=== PATIENT | male | born 1935 | race Caucasian/White ===

== ENCOUNTER 2019-01-08 14:20 | Outpatient (CLI) | payer MEDICARE | END 2019-01-08 14:21 | disposition critical access hospital (66) | LOC: EMS 14:20 | PROVIDERS: ATTEND Surgery | DX: R41.0 Disorientation, unspecified (principal); R42 Dizziness and giddiness; R47.81 Slurred speech | CPT/HCPCS: A0425; A0429 ==

== ENCOUNTER 2019-01-08 14:51 | Observation (INO) | payer MEDICARE ==
[2019-01-08] MEDS ORDERED: SODIUM CHLORIDE 0.9% 1,000 ML IV ONE (15:21)
[2019-01-08 15:31] LABS: BASOPHILS # (AUTO) 0.1 10^3/uL (0.0-0.1); BASOPHILS % (AUTO) 0.6 %; EOSINOPHILS # (AUTO) 0.3 10^3/uL (0.0-0.7); EOSINOPHILS % (AUTO) 3.1 %; LYMPHOCYTES # (AUTO) 1.3 10^3/uL (1.5-3.5); LYMPHOCYTES % (AUTO) 15.1 %; MEAN CORPUSCULAR HEMOGLOBIN 32.4 pg (27.0-31.0); MEAN CORPUSCULAR HGB CONC 31.7 g/dL (32.0-36.0); MEAN CORPUSCULAR VOLUME 102.1 fL (80.0-94.0); MEAN PLATELET VOLUME 9.8 fL (7.4-11.4); MONOCYTES # (AUTO) 0.6 10^3/uL (0.0-1.0); MONOCYTES % (AUTO) 7.5 %; NEUTROPHILS # (AUTO) 6.1 10^3/uL (1.5-6.6); NEUTROPHILS % (AUTO) 73.2 %; PLT - PLATELET COUNT 279 10^3/uL (130-450); RED BLOOD COUNT 4.32 10^6/uL (4.70-6.10); RED CELL DISTRIBUTION WIDTH 12.2 % (12.0-15.0); WHITE BLOOD COUNT 8.3 x10^3/uL (4.8-10.8)
[2019-01-08] MEDS ORDERED: IOVERSOL 320 100 ML VIAL IVP ONE ×2 (15:36→16:18)
[2019-01-08 15:59] LABS: ALBUMIN 4.5 g/dL (3.2-5.5); ALBUMIN/GLOBULIN RATIO 1.5 (1.0-2.2); CALCIUM 9.6 mg/dL (8.5-10.3); CREATININE 1.6 mg/dL (0.6-1.2); MAGNESIUM 2.6 mg/dL (1.7-2.8); TOTAL PROTEIN 7.6 g/dL (6.7-8.2)
[2019-01-08 16:00] LABS: BILIRUBIN,URINE NEGATIVE (NEGATIVE); CLARITY,URINE CLEAR (CLEAR); GLUCOSE, URINE (UA) NEGATIVE (NEGATIVE); KETONES,URINE (UA) NEGATIVE (NEGATIVE); LEUKOCYTE ESTERASE, URINE NEGATIVE (NEGATIVE); NITRITE,URINE NEGATIVE (NEGATIVE); OCCULT BLOOD,URINE NEGATIVE (NEGATIVE); PH,URINE 7.5 PH (5.0-7.5); PROTEIN,URINE NEGATIVE (NEGATIVE); UROBILINOGEN,URINE 0.2 (NORMAL) E.U./dL (NORMAL)
--- NOTE | 2019-01-08 16:57 | ED Physician Documentation ---
PD HPI FOCAL NEURO - Stated complaint Stated Complaint: SLURRED SPEECH - Chief complaint Chief Complaint: Neuro - History obtained from History obtained from: Patient, Family, EMS - History of Present Illness Timing - onset: How many days ago (3) Timing - duration: Days (3) Timing - details: Abrupt onset, Still present Severity of deficit: Moderate (general weakness and difficulty ambulating with walker. Slurring of speech but content is okay. Dizziness with movement.) Weakness: Other (generalized) Numbness: No: Face, Arm, Leg Associated symptoms: No: Headache, Nausea / vomiting, Syncope, Head injury, Neck pain, Back pain Contributing factors: negative: Anticoagulated, Atrial fibrillation Baseline status: positive: Walker. negative: Dementia Similar symptoms before: Has not had sx before Recently seen: Not recently seen Review of Systems Constitutional: denies: Fever, Chills, Myalgias Nose: denies: Rhinorrhea / runny nose, Congestion Throat: denies: Sore throat Cardiac: denies: Chest pain / pressure, Palpitations Respiratory: denies: Dyspnea, Cough GI: denies: Abdominal Pain, Nausea, Vomiting, Diarrhea : denies: Dysuria, Frequency Neurologic: denies: Focal weakness, Numbness, Headache, Head injury PD PAST MEDICAL HISTORY - Past Medical History Past Medical History: Yes Cardiovascular: Hypertension, High cholesterol Psych: Depression, Anxiety - Past Surgical History Past Surgical History: Yes Derm: Skin cancer surgery - Present Medications Home Medications: Ambulatory Orders Medication Instructions Recorded Confirmed Aspirin [Carson] 81 mg PO DAILYWM tablet 01/09/19 Atorvastatin [Lipitor] 40 mg PO QPM tablet 01/09/19 [place] 150 mg PO BID capsule 01/09/19 Losartan [Cozaar] 100 mg PO DAILY tablet 01/09/19 Metoprolol Tartrate [Lopressor] 25 mg PO BID tablet 01/09/19 Mirtazapine [Remeron] 45 mg PO QPM tablet 01/09/19 OLANZapine ODT [Zyprexa Odt] 10 mg TL DAILY tablet 01/09/19 buPROPion [Wellbutrin Sr] 150 mg PO DAILY tablet 01/09/19 busPIRone [Buspar] 10 mg PO BID tablet 01/09/19 metFORMIN [Glucophage] 500 mg PO DAILY tablet 01/09/19 - Allergies Allergies/Adverse Reactions: Allergies Allergy/AdvReac Type Severity Reaction Status Date / Time lisinopril Allergy Unknown Verified 01/08/19 14:59 - Social History Does the pt smoke?: No Smoking Status: Never smoker Does the pt drink ETOH?: Yes Does the pt have substance abuse?: No - Immunizations Immunizations are current?: Yes - POLST Patient has POLST: No PD ED PE NORMAL - Vitals Vital signs reviewed: Yes - General General: Alert and oriented X 3, No acute distress, Well developed/nourished - HEENT HEENT: Atraumatic, Pharynx benign - Neck Neck: Supple, no meningeal sign, No adenopathy - Cardiac Cardiac: RRR, No murmur - Respiratory Respiratory: Clear bilaterally - Abdomen Abdomen: Soft, Non tender - Back Back: No CVA TTP - Derm Derm: Normal color, Warm and dry - Extremities Extremities: No tenderness to palpate, Normal ROM s pain, No edema, No calf tenderness / cord - Neuro Neuro: Alert and oriented X 3, No motor deficit, No sensory deficit, Normal speech, Other (seems off balance standing with walker) Eye Opening: Spontaneous Motor: Obeys Commands Verbal: Oriented GCS Score: 15 - Psych Psych: Normal mood NIHSS - Level of Consciousness Level of consciousness: (0) Alert, Keenly responsive LOC Questions: (0) Answers both Q's correct LOC Commands: (0) Performs both correctly - Gaze Best Gaze: (0) Normal - Visual Visual: (0) No loss - Facial Palsy Facial Palsy: (0) Normal, symmetrical movement - Motor Arms (both separate) Motor Arm (right): (0) No drift Motor Arm (left): (0) No drift - Motor Legs (both separate) Motor Leg (right): (0) No drift Motor Leg (left): (0) No drift - Limb Ataxia Limb Ataxia: (1) Present in 1 limb - Sensory Sensory: (0) Normal - Best Language Best Language: (0) No aphasia - Dysarthria Dysarthria: (1) [id number] dysarthria - Extinction and Inattention (formally neg Extinction and inattention: (0) No abnormality - Total Score/Results Total Score/Result: 2 Results - Vitals Vitals: Oxygen O2 Source Room air - Labs Labs: Laboratory Tests 01/08/19 01/08/19 01/08/19 15:20 15:20 15:20 WBC 8.3 RBC 4.32 L Hgb 14.0 Hct 44.1 MCV 102.1 H MCH 32.4 H MCHC 31.7 L RDW 12.2 Plt Count 279 MPV 9.8 Neut # (Auto) 6.1 Lymph # (Auto) 1.3 L [place] # (Auto) 0.6 Eos # (Auto) 0.3 Baso # (Auto) 0.1 Absolute Nucleated RBC 0.00 Nucleated RBC % 0.0 ESR 8 Sodium 141 Potassium 4.8 Chloride 105 Carbon Dioxide 27 Anion Gap 9.0 BUN 33 H Creatinine 1.6 H Estimated GFR (MDRD) 41 L Glucose 114 H Glycated Hemoglobin Estim Average Glucose Lactic Acid Calcium 9.6 Magnesium 2.6 Total Bilirubin 1.0 AST 18 ALT 31 Alkaline Phosphatase 88 Troponin I High Sens Total Protein 7.6 Albumin 4.5 Globulin 3.1 Albumin/Globulin Ratio 1.5 Lipase 31 TSH Urine Color Urine Clarity Urine pH Ur Specific [place] Urine Protein Urine Glucose (UA) Urine Ketones Urine Occult Blood Urine Nitrite Urine Bilirubin Urine Urobilinogen Ur Leukocyte Esterase Ur Microscopic Review Urine Culture Comments 01/08/19 01/08/19 01/08/19 15:20 15:20 15:20 WBC RBC Hgb Hct MCV MCH MCHC RDW Plt Count MPV Neut # (Auto) Lymph # (Auto) [place]os # (Auto) Eos # (Auto) Baso # (Auto) Absolute Nucleated RBC Nucleated RBC % ESR Sodium Potassium Chloride Carbon Dioxide Anion Gap BUN Creatinine Estimated GFR (MDRD) Glucose Glycated Hemoglobin 6.3 H Estim Average Glucose 134 H Lactic Acid Calcium Magnesium Total Bilirubin AST ALT Alkaline Phosphatase Troponin I High Sens 4.4 Total Protein Albumin Globulin Albumin/Globulin Ratio Lipase TSH 2.27 Urine Color Urine Clarity Urine pH Ur Specific [place] Urine Protein Urine Glucose (UA) Urine Ketones Urine Occult Blood Urine Nitrite Urine Bilirubin Urine Urobilinogen Ur Leukocyte Esterase Ur Microscopic Review Urine Culture Comments 01/08/19 01/08/19 15:29 15:53 WBC RBC Hgb Hct MCV MCH MCHC RDW Plt Count MPV Neut # (Auto) Lymph # (Auto) [place] # (Auto) Eos # (Auto) Baso # (Auto) Absolute Nucleated RBC Nucleated RBC % ESR Sodium Potassium Chloride Carbon Dioxide Anion Gap BUN Creatinine Estimated GFR (MDRD) Glucose Glycated Hemoglobin Estim Average Glucose Lactic Acid 1.1 Calcium Magnesium Total Bilirubin AST ALT Alkaline Phosphatase Troponin I High Sens Total Protein Albumin Globulin Albumin/Globulin Ratio Lipase TSH Urine Color YELLOW Urine Clarity CLEAR Urine pH 7.5 Ur Specific [place] 1.010 Urine Protein NEGATIVE Urine Glucose (UA) NEGATIVE Urine Ketones NEGATIVE Urine Occult Blood NEGATIVE Urine Nitrite NEGATIVE Urine Bilirubin NEGATIVE Urine Urobilinogen 0.2 (NORMAL) Ur Leukocyte Esterase NEGATIVE Ur Microscopic Review NOT INDICATED Urine Culture Comments NOT INDICATED - Rads (name of study) neck angio Radiology: Prelim report reviewed (no carotid occlusions), See rad report head angio Radiology: Prelim report reviewed (no acute bleed nor mass effect. No major vessel occlusions. ), See rad report PD MEDICAL DECISION MAKING - ED course Complexity details: reviewed results, considered differential (He has couple of days of dizziness which is worse with walking and moving but still some feeling of it at rest. He is having some dysarthria with speech and a feeling of some word searching. He is having a feeling of general weakness walking with his walker and has difficulty balancing. There is no unilateral weakness. He does not have any head cold or ear symptoms. There is no nystagmus noted. This would be concerning for posterior circulation process. His head CT and ORR do not show any acute process or major vessel occlusion. MRI would still be indicated for evaluation of posterior circulation stroke or mass-effect such as MS. I will talk with the hospitalist to have them continue further work-up. Other tests are appear normal without any signs of metabolic or infectious causes. He is not on any obvious medicine to cause toxic causes.), d/w patient, d/w sharepoint consultant Departure - Departure Disposition: ED Place in Observation Clinical Impression: Dizziness, Dysarthria Condition: Stable Record reviewed to determine appropriate education?: Yes Discharge Date/Time: 01/08/19 19:00
--- NOTE | 2019-01-08 17:09 | CT Report ---
Reason: L sided facial droop Procedure Date: 01/08/2019 Accession Number: [id number] / [id number] Procedure: CT - ANGIO HEAD W/WO CPT Code: Final Report FULL RESULT: EXAM: CT ANGIOGRAM HEAD. CT SCAN OF THE HEAD WITHOUT AND WITH CONTRAST. EXAM DATE: 01/08/2019 04:17 PM CLINICAL HISTORY: Left-sided facial droop. COMPARISON: CT angiogram neck from today. TECHNIQUE: - CT Scan Head: Using a multidetector scanner, axial images were acquired from the foramen magnum to the skull vertex prior to and following contrast administration. - CT Angiogram: Using a multidetector scanner, high-resolution axial images were acquired from the skull base through vertex following rapid infusion of intravenous contrast. Reformats: Multiplanar MIP reformats were reconstructed. Nascet criteria used for stenosis measurement. IV Contrast: Optiray-320 [address] mL. In accordance with CT protocol optimization, one or more of the following dose reduction techniques were utilized for this exam: automated exposure control, adjustment of mA and/or KV based on patient size, or use of iterative reconstructive technique. FINDINGS: CT HEAD: Age-appropriate prominence of the ventricles and sulci is present. Bobby-white matter differentiation is preserved. No enhancing mass or intracranial hemorrhage is seen. A punctate calcification is seen in the right deisy. The calvarium is intact. Evidence of prior sinus surgery is present. Mucosal thickening is seen in the right maxillary sinus and there is a thickened sclerotic appearance of the right maxillary sinus batista. CT ANGIOGRAM HEAD: There is a fenestrated proximal M1 segment of the right MCA. No high-grade stenosis or occlusion is present in the proximal aspect of the major intracranial vessels. Mild atherosclerotic narrowing is seen in the V4 segment of the right vertebral artery. The left vertebral artery ends as the posterior inferior cerebellar artery. Atherosclerotic plaque is seen in each cavernous ICA without a significant stenosis present. Expected enhancement is seen in the superior sagittal sinus. A conical outpouching of contrast involving the paraclinoid ICA bilaterally is felt to reflect an infundibular origin. IMPRESSION: CT Head: 1. No acute intracranial process is identified. 2. Mucosal l thickening is seen in the right maxillary sinus with bony changes consistent with chronic inflammation. CTA Head: 1. No large vessel occlusion. RADIA
--- NOTE | 2019-01-08 17:15 | CT Report ---
Reason: L sided facial droop, L neck pain Procedure Date: 01/08/2019 Accession Number: [id number] / [id number] Procedure: CT - ANGIO NECK W CPT Code: Final Report FULL RESULT: EXAM: CT ANGIOGRAM NECK EXAM DATE: 01/08/2019 04:17 PM. CLINICAL HISTORY: Left-sided facial droop, left neck pain. COMPARISON: CT angiogram head from today. TECHNIQUE: Routine axial helical imaging was performed from the skull base through the aortic arch. Reconstructions: Routine multiplanar 3D MIP reconstructions. IV Contrast: Optiray 320, 80 mL. Evaluation of arterial stenosis is based on a NASCET method of measurement. In accordance with CT protocol optimization, one or more of the following dose reduction techniques were utilized for this exam: automated exposure control, adjustment of mA and/or KV based on patient size, or use of iterative reconstructive technique. FINDINGS: Right Carotid: Minimal atherosclerotic plaque is seen in the proximal cervical ICA. No significant cervical ICA narrowing is present. Left Carotid: Mild atherosclerotic plaque is seen involving the distal CCA and proximal cervical ICA. No significant cervical ICA narrowing is present. Vertebrals: The right vertebral artery is dominant. No significant right vertebral artery stenosis is present. The cervical left vertebral artery is small on a developmental basis and is patent. Intracranial Circulation: The reader is referred to the patient CT angiogram head report performed today and dictated under separate cover. Other: No mass is present in either parotid gland or submandibular gland. There is some motion artifact on the study. No subglottic stenosis is present. The thyroid gland is somewhat prominent. No bulky lymphadenopathy is seen in the neck. No suspicious spiculated mass is present in either lung apex. Degenerative disk disease and osteophyte formation are seen at scattered levels of the cervical spine, greatest in the cervical spine from C3 through C6. Solid osseous fusion is seen across the posterior elements and disk space at C6-C7. Multilevel cervical foraminal stenosis is present. IMPRESSION: 1. No hemodynamically significant stenosis is present at either cervical ICA or cervical vertebral artery. 2. Degenerative changes are seen in the spine RADIA
[2019-01-08] MEDS ORDERED: SODIUM CHLORIDE FLUSH 0.9% 10 ML SYRINGE IVP PRN (17:56)
[2019-01-08] MEDS ORDERED: SODIUM CHLORIDE 0.9% 1,000 ML IV SCH (18:00)
--- NOTE | 2019-01-08 18:08 | HISTORY & PHYSICAL EXAMINATION ---
Chief Complaint - Chief Complaint Chief Complaint: weak for 4 days History of Present Illness - Admitted From Admitted From:: home - History Obtained From Records Reviewed: ED notes reviewd History obtained from: Patient and ED - History of Present Illness HPI Comment/Other: 87 yo gentleman who moved with his from [facility] in July 2018,lives with his , presented with persistant generalized weakness and "slurred speech" per ED which describes as "quiet speech" noted since ~ Sunday and finally came to ED because patient not not improved over the last 4 days. In [place] on Sunday, the noted that he did not seem to be able to tolerate the repeated standing during the service and had to sit. On occasion his speech was very quiet, no real dysarthria, no word finding difficulty, but he was difficult to understand because speaking so quietly. He normally uses a walker, and he noted some imbalance, lightheadedness when using his walker. Not vertiginous.He specifically denies unilateral weakness or paresthesia. noted no facial droop. No dyshphagia. No visual deficits nor diplopia, no dysphagia. Does wear glasses and has an ophtalmology appt coming up next week. He does admit "I probably dont drink enough" On Mondays he goes to a mens meeting group,His friends said he was speaking so quietly they couldnt understand him. The notes that when she went to pick him up he was "just sitting there" sort of with his head bent forward. Later that day she took him to their regular fitness class. She notes he does usually sit for the exercises, but noted that when he was to do a marching movement with his legs while sitting, he was just shuffling his feet. He did fall ~ 1 week ago, no injury, . That was the first he had fallen in ~ 1 year. He does usually use a walker. Also when getting dressed one day, he seemed to not be clear on what to do with is shirt, but there were no other such incidences. When asked why she brought him to ED 4 days later she notes because it wasnt getting better. In the ED labs notable for elevated BUN, Cr although baseline unknown ( will bring [facility] labs) Concern for TIA vs stroke. CTA was negative. Risk factors include HTN,and hyperlipidemia and DM, (on medical management for all respectivly) He denies unilateral weakness or paresthesias, usually uses a walker, , no visual defictis, no diplopia, no difficulty swallowing. Patient has no prior hx of tia or stroke. No associated recent fever, chills, cough, nausea, dysuria, frequency hesitancy,no bowel changes In the ED exam was notable for patient alert, orientd x 3 no motor eficit . . History - Past Medical History Cardiovascular: reports: Hypertension, High cholesterol Neuro: denies: None Psych: reports: Depression, Anxiety Derm: reports: Other (history of skin cancer surgery) MRSA Hx?: Yes - Past Surgical History Derm: reports: Skin cancer surgery - Substance History Use: Uses substance without health or social issues: Alcohol - POLST Patient has POLST: No Meds/Allgy - Home Medications Home Medications: Ambulatory Orders Medication Instructions Recorded Confirmed Aspirin [Carson] 81 mg PO DAILYWM tablet 01/09/19 Atorvastatin [Lipitor] 40 mg PO QPM tablet 01/09/19 Volin 150 mg PO BID capsule 01/09/19 Losartan [Cozaar] 100 mg PO DAILY tablet 01/09/19 Metoprolol Tartrate [Lopressor] 25 mg PO BID tablet 01/09/19 Mirtazapine [Remeron] 45 mg PO QPM tablet 01/09/19 OLANZapine ODT [Zyprexa Odt] 10 mg TL DAILY tablet 01/09/19 buPROPion [Wellbutrin Sr] 150 mg PO DAILY tablet 01/09/19 busPIRone [Buspar] 10 mg PO BID tablet 01/09/19 metFORMIN [Glucophage] 500 mg PO DAILY tablet 01/09/19 - Allergies Allergies/Adverse Reactions: Allergies Allergy/AdvReac Type Severity Reaction Status Date / Time lisinopril Allergy Unknown Verified 01/08/19 14:59 Review of Systems - Constitutional Constitutional: reports: Fatigue, Weakness. denies: Fever, Chills, Poor appetite, Diaphoresis, Weight gain, Weight loss - Eyes Eyes: reports: Corrective lenses. denies: Field loss, Vision loss, Dipolpia - Ears, Nose & Throat Ears, Nose & Throat: reports: Hearing loss - Cardiovascular Cariovascular: reports: Lightheadedness (as per HPI). denies: Irregular heart rate, Palpitations, Chest pain, Edema - Respiratory Respiratory: denies: Cough, Sputum production, Wheezing, Orthopnea, SOB at rest, SOB with exertion - Gastrointestinal Gastrointestinal: denies: Abdominal pain, Constipation, Diarrhea, Change in bowel habits, Black stools, Bloody stools - Genitourinary Genitourinary: denies: Dysuria, Frequency, Urgency - Musculoskeletal Musculoskeletal: reports: Other (Has fallen, 1x last week, 1st time in over a year). denies: Muscle pain, Back pain - Integumentary Integumentary: reports: Other (basal ca hx). denies: Rash, Lumps - Neurological Neurological: reports: General weakness (as per HPI), Other (as per HPI). denies: Focal weakness, Headache - Psychiatric Psychiatric: reports: Depression (per , has psychiatrist, sees regularly, has been hospitalized 4 x for severe depression, including Suicidal ideation (mood currently well controlled)), Other ( reports 4 admissions for "depression" though Rx suggests BPD) - Endocrine Endocrine: reports: Other (doesnt know A1C , was told "its good"). denies: Polyuria, Polydypsia, Polyphagia - Hematologic/Lymphatic Hematologic/Lymphatic: denies: Anemia, Bruising Exam - Vital Signs Vital Signs: Vital Signs x48h Temp Pulse Resp BP Pulse Ox 01/08/19 15:03 36.5 C 73 12 137/80 H 100 01/08/19 14:53 72 14 140/84 H 99 - Physical Exam General Appearance: positive: No acute distress, Alert, Other (Elderly gentleman lying in stretcher in ED, at bedside , wearing glasses,, balding, responds to questions, no dysarthria, animatedly says " youre not stopping my lithium". Articulates that he has a vision appointment next week. Of note he easily sits up from lying for chest exam (per he could not sit up at home (has gotten 1 Liter fluid_) Eyes Bilateral: positive: Normal inspection, PERRL, EOMI, Other (glasses, no nystagmus) Neck: positive: Nml inspection, Other (no carotid bruit) Respiratory: positive: Chest non-tender, No respiratory distress Cardiovascular: positive: Regular rate & rhythm, No murmur Abdomen: positive: No organomegaly, Nml bowel sounds, No distention. negative: Hepatomegaly Skin: positive: Warm, Dry Extremities: negative: Pedal edema Neurologic/Psychiatric: positive: Oriented x3, CN's nml (2-12), Motor nml, Mood/affect nml (a little irritated by the continued admission "interview" from being in ED "when is this going to be over"), Other (rapid alternating movements intact (and while doing them asks, "are we almost through here?") Conclusion/Plan - Problem List (1) Generalized weakness Conclusion/Plan: Patients presentation does not sound highly suggestive of TIA but does have HTN, DM, hyperlipidemia (on Rx) Given what appears to be intravscular volume depletion, and patient on lithium, possibly has supratherapeutic lithium level as contributor to symptoms Added lithium level He has already gotten 1 L NS in Ed and per has improved significantly; sat up from lying for chest exam with no problem, but at home could not sit up inn bed If supratherapeutic will d/c MRI and echo (patient already was called for MRI while writing this note) Continue volume repletion Holding ACEI until try to find baseline renal fxn (2) Depression Conclusion/Plan: reports long standing depression, and meds were prescribed by psychiatrist, and has psychiatrist here Is aware that providers have commented on polypharmacy ? element of bipolar given meds? Will hold lithium until check level (Patient states "I'm not stopping my lithium" Continue buproprion (need to find out if bid or qd; qd for now cotninue buspirone (check if bid or qd) Resume olazapine in am; only have SL here (3) Hypertension Conclusion/Plan: stable, not hypo nor hypertensive on presentation continue BB Hold losartan til find baseline renal function (4) Hyperlipidemia Conclusion/Plan: continue home statin (had initially ordered atorastatin 80 as part of TIA w/u, but suspect symptoms related to volume depletion and possilbe lithium toxicity Will consider change to 80 mg only IF lithium level is not elevated (5) Code status needs review Conclusion/Plan: Code status discussed with patient Patient wishes full code (6) Acute kidney injury Conclusion/Plan: BUN/Cr 33/1.6 dont know baseline LINDA vs CKD suspect volume depletion (may be CKD with HTN, DM at age 83) [facility] after volume rrepletion holding ARB as above VTE prophylaxis sq lovenox - Lab Results Fish Bones: 01/09/19 05:05 01/09/19 05:05
[2019-01-08] MEDS ORDERED: ASPIRIN 325 MG TABLET PO SCH (19:00)
[2019-01-08 19:42] LABS: CALCIUM 9.5 mg/dL (8.5-10.3); CREATININE 1.5 mg/dL (0.6-1.2)
[2019-01-08 19:43] LABS: LITHIUM 0.49 mmol/L
[2019-01-08 20:01] LABS: HEMOGLOBIN A1C 0.63 g/dL; HEMOGLOBIN A1C % 6.3 % (4.6-6.2)
[2019-01-08] MEDS ORDERED: MIRTAZAPINE 15 MG TABLET PO SCH (21:00)
[2019-01-08] MEDS ORDERED: ATORVASTATIN 40 MG TABLET PO SCH ×2 (21:00)
[2019-01-08] MEDS: METOPROLOL TARTRATE 50 MG TABLET PO SCH (21:05)
[2019-01-08] MEDS: SODIUM CHLORIDE 0.9% 1,000 ML IV SCH (21:09)
--- NOTE | 2019-01-08 21:10 | MRI Report ---
Reason: new dysarthria Procedure Date: 01/08/2019 Accession Number: [id number] / [id number] Procedure: MRI - Brain W/O CPT Code: Final Report FULL RESULT: EXAM: MRI BRAIN WITHOUT CONTRAST EXAM DATE: 01/08/2019 08:16 PM. CLINICAL HISTORY: 83-year-old presenting with new left-sided facial droop and dysarthria. Evaluate for intracranial pathology. COMPARISON: HEAD ANGIO 01/08/2019 4:09 PM. NECK ANGIO 01/08/2019 4:09 PM. TECHNIQUE: Multiplanar, multisequence T1-weighted and fluid-sensitive MR sequences of the brain were performed. Sequences optimized for routine evaluation. Other: None. IV Contrast: None. FINDINGS: Motion artifact technically limits evaluation. Brain Volume: Normal for age. Parenchyma/Dura: No acute parenchymal hemorrhage, mass, or midline shift. There is a prominent right subinsular perivascular space. 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 There is some mild bilateral areas of T2/FLAIR signal hyperintensity seen including patchy FLAIR signal hyperintensity within the midbrain and deisy.No areas of restricted diffusion seen to suggest acute infarct. Susceptibility artifact seen within bilateral basal ganglia that may represent mineralization. Ventricles/Cisterns: No hydrocephalus.No abnormal extra-axial fluid collection or hemorrhage. Orbits: Changes of bilateral lens replacement. Sella Turcica: The pituitary gland, cavernous sinuses, suprasellar cistern and optic chiasm are unremarkable. IAC: Symmetric and unremarkable. Vasculature: Normal signal flow void is seen in the major arterial structures at the skull base. Sinuses: Post surgical changes of right maxillary antrostomy, uncinectomy, and ethmoidectomy. Mild mucosal thickening of the right maxillary sinus. Mastoid air cells and middle ear cavities appear clear. Bones: No focal pathologic appearing marrow signal changes. Other: None. IMPRESSION: 1. No definite acute intracranial pathology seen; specifically, no acute infarct, acute intracranial mass, hydrocephalus, or midline shift. 2. 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 Additional mild white matter changes seen that while nonspecific, likely represent sequela of chronic small vessel ischemic disease. RADIA
[2019-01-08] MEDS: INSULIN ASPART 300 UNIT/3 ML PEN SUBQ SCH (21:23)
[2019-01-09] MEDS: SODIUM CHLORIDE FLUSH 0.9% 10 ML SYRINGE IVP SCH ×2 (01:33→08:45)
[2019-01-09 05:23] LABS: HGB - HEMOGLOBIN 12.9 g/dL (14.0-18.0); MEAN CORPUSCULAR HEMOGLOBIN 32.5 pg (27.0-31.0); MEAN CORPUSCULAR HGB CONC 32.2 g/dL (32.0-36.0); MEAN PLATELET VOLUME 9.8 fL (7.4-11.4); RED BLOOD COUNT 3.97 10^6/uL (4.70-6.10); RED CELL DISTRIBUTION WIDTH 12.2 % (12.0-15.0)
[2019-01-09 05:30] LABS: CALCIUM 9.1 mg/dL (8.5-10.3); CREATININE 1.6 mg/dL (0.6-1.2)
[2019-01-09] MEDS: SODIUM CHLORIDE 0.9% 1,000 ML IV SCH (06:54)
[2019-01-09] MEDS: METOPROLOL TARTRATE 50 MG TABLET PO SCH (08:44)
[2019-01-09] MEDS: INSULIN ASPART 300 UNIT/3 ML PEN SUBQ SCH ×2 (08:44→12:47)
[2019-01-09] MEDS ORDERED: busPIRone 5 MG TABLET PO SCH ×2 (09:00→21:00)
[2019-01-09] MEDS ORDERED: ENOXAPARIN 30 MG/0.3 ML SYRINGE SUBQ SCH (09:00)
[2019-01-09] MEDS ORDERED: buPROPion SR 150 MG TABLET PO SCH (09:00)
[2019-01-09 11:24] LABS: CHOL/HDL RATIO 2.8 (<5.0); CHOLESTEROL 122 mg/dL; HDL CHOLESTEROL 44 mg/dL; LDL CHOLESTEROL,CALCULATED 64 mg/dL; LDL/HDL RATIO 1.5 (<3.6); VLDL CHOLESTEROL 14 mg/dL
--- NOTE | 2019-01-09 11:48 | Discharge Plan ---
Discharge Plan Problem Reviewed?: Yes Disposition: Home, Self Care Condition: Stable Diet: Diabetic Activity Restrictions: with walker, at risk for falls Shower Restrictions: No (with shower chair) Driving Restrictions: Yes Assistance Devices: Walker Weight Bearing: Full Weight Care Goals: Remain hydrated to avoid symptoms of dehydration 1.5 liters minimum daily Additional Instructions or Follow Up instructions: 1) Generalized weakness You presented with several days of generalized weakness with no one sided deficits or numbness, no vision change, no trouble chewing swallowing, and quiet difficult to understand speech (but not garbled) Your weakness seemed to be primarily related to "volume depletion" (dehydration). You were already feeling better in the ED after getting a liter of IV fluid, and feeling much better the following day after more IV fluid overnight It is important that you drink enough liquid at home. At least 1.5 liters daily [place] level was not elevated Physical therapy evaluated your strenght and balance (even in the stairs) and indicated safe to go home, continue using walker There was intially concern that your symptoms could be a stroke or ministroke. Your symptoms though did not sound highly consistent with a ministroke or stroke currently -The CT of the vessels in your head and neck was normal., -MRI of your brain was normal although it did show an old "lacunar stroke " and white matter changes likely "small vessel ischemic disease" (related to high blood pressure. No acute stroke. -Echocardiogram had no notable findings - No irregular heart rate or slow/or fast rate on telemetry monitoring Since your PCP also suggested baby aspirin and you have had lacunar strokes, add baby aspirin daily. 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 Given your age, it might be good to have regular reviews with your psychologist if either doses or number of different drugs might be reduced. 3. Diabetes: You are on Metformin 500 daily Your A1C is 6.3 which is very good control especially at 83. It might be reasonable to discuss with primary care provider if a trial of just diet control still keeps your blood sugar in reasonable range for 83. (4) Chronic kidney disease Conclusion/Plan: Your kidney numbers were a little elevated Even with hydrationBUN/Cr 31/1.5 and 34/1.6 On 01/09 you were able to check your [facility] [place] labs. This seems to be your baseline. No Smoking: If you smoke, Please STOP! Call for help. Follow-up with: LYSSA RUBIO MD [Primary Care Provider] -
[2019-01-09] MEDS ORDERED: LOSARTAN 50 MG TABLET PO SCH (12:00)
[2019-01-09 12:11] VITALS: BP 146/59
--- NOTE | 2019-01-09 14:10 | DISCHARGE SUMMARY ---
Discharge Summary Admit Date: 01/08/19 Discharge Date: 01/09/19 Discharging Provider: TONIA Lemus Primary Care Provider: [facility] PCP in [place] Code Status: Attempt Resuscitation Condition at Discharge: Stable Discharge Disposition: 01 Home, Self Care Discharge Facility Name: home - DIAGNOSES Admission Diagnoses: Possible TIA generalized Weakness hypertension Depression Diabetes Acute kidney injury Discharge Diagnoses with Status of Each Condition: Possible TIA; symptoms more likley volume depletion doubt TIA, did add ASA to home regimen (PCP had also suggested in jpast) generalized Weakness related to volume depletion hypertension controlled Depression Mood stable Diabetes A1C 6.3 Chronic kidney disease Stage III (not LINDA) stable outpatient [facility] labs obtained; renal function c/w current BUN/Cr 33/1.5 ; - HPI History of Present Illness: 87 yo gentleman who moved with his from [facility] to [facility] in July 2018,lives with his , presented with persistant generalized weakness and "slurred speech" per ED which noted since ~ Sunday and finally came to ED because it has not improved over the last 4 days. In [employer] on Sunday, the noted that he did not seem to be able to tolerate the repeated standing during the service and had to sit. On occasion his speech was very quiet, no real dysarthria, no but no word finding difficulty, He normally uses a walker, and he noted some imbalance, lightheadedness when using his walker. Not vertiginous.He specifically denies unilateral weakness or paresthesia. noted no facial droop. No dyshagia. No visual deficits nor diplopia, no dysphagia. Does wear glasses and has an ophtalmology appt coming up next week. He does admit "I probably dont drink enough" On Mondays he goes to a [employer] meeting group,His friends said he was speaking so quietly they couldnt understand him. The notes that when she went to pick him up he was "just sitting there" sort of with his head bent forward. Later that day she took him o their regular fitness class. She notes he does usually sit for the exercises, but noted that when he was to do a marching movement with his legs while sitting, he was just shuffling his feet. He did fall ~ 1 week ago, no injury, . That was the first he had fallen in ~ 1 year. He does usually use a walker. Also when getting dressed one day, he seemed to not be clear on what to do with is shirt, but there were no other such incidences. In the ED labs notable for elevated BUN, Cr although baseline unknown ( will bring [facility] labs) Concern for TIA vs stroke. CTA was negative. Risk factors include HTN,and hyperlipidemia and DM, (on medical management for all respectivly) He denies unilateral weakness or paresthesias, usually uses a walker, , no visual defictis, no diplopia, no difficulty swallowing. Patient has no prior hx of tia or stroke. No associated recent fever, chills, cough, nausea, diarrhea dysuria, frequency - CONSULTS | PROCEDURES Consultations: none Procedures: none - HOSPITAL COURSE Hospital Course: (1) Generalized weakness related to volume depletion Resolved Patients presentation and rapid improvement with IV fluid volume more consistent with volume depletion as cause rather than TIA [place] level was not elevated Work up for TIA which was initiated; neg head CTA, neck CTA, brain MRI without acute finding although evidence of old lacunar infarct, no tachy/bradydysrhthmia on tele, echo with no remarkable findings, Physical Therapy evaluated patient after hydration, continue using walker, safe for discharge home 2) 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 Diabetes: On Metformin 500 daily A1C is 6.3 Might be reasonable to evaluate diet control only in this 83 year old, defer to PCP 5) CKD III BUN/Cr 33/1.6 Once his outside labs were obtained this appears to be his baseline and minimal change after IVF Continues losartan (6) Code status Patient wishes full code - ALLERGIES Allergies/Adverse Reactions: Allergies Allergy/AdvReac Type Severity Reaction Status Date / Time lisinopril Allergy Unknown Verified 01/08/19 14:59 - MEDICATIONS Home Medications: Ambulatory Orders Medication Instructions Recorded Confirmed Aspirin [Carson] 81 mg PO DAILYWM tablet 01/09/19 Atorvastatin [Lipitor] 40 mg PO QPM tablet 01/09/19 [place] 150 mg PO BID capsule 01/09/19 Losartan [Cozaar] 100 mg PO DAILY tablet 01/09/19 Metoprolol Tartrate [Lopressor] 25 mg PO BID tablet 01/09/19 Mirtazapine [Remeron] 45 mg PO QPM tablet 01/09/19 OLANZapine ODT [Zyprexa Odt] 10 mg TL DAILY tablet 01/09/19 buPROPion [Wellbutrin Sr] 150 mg PO DAILY tablet 01/09/19 busPIRone [Buspar] 10 mg PO BID tablet 01/09/19 metFORMIN [Glucophage] 500 mg PO DAILY tablet 01/09/19 - PHYSICAL EXAM AT DISCHARGE General Appearance: positive: No acute distress, Alert, Other (animated) Eyes Bilateral: positive: Normal inspection, PERRL, EOMI, Other (glasses) Neck: positive: Nml inspection. negative: Carotid bruit Respiratory: positive: Chest non-tender, No respiratory distress, Breath sounds nml Cardiovascular: positive: Regular rate & rhythm, No murmur Abdomen: positive: Nml bowel sounds, No distention. 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
[2019-01-09] MEDS ORDERED: LITHIUM 150 MG CAPSULE PO SCH (21:00)
[2019-01-10] MEDS ORDERED: ASPIRIN 325 MG TABLET PO SCH (08:00)
[2019-01-10] MEDS ORDERED: OLANZapine ODT 5 MG TABLET TL SCH (09:00)
[2019-01-11] MEDS ORDERED: metFORMIN 500 MG TABLET PO SCH (09:00)
== END 2019-01-09 13:30 | disposition home or self-care (01) ==
LOC: ED 14:51 → MS2 17:56
PROVIDERS: ADMIT Nurse Practitioner; ATTEND Nurse Practitioner
DX: E86.0 Dehydration (principal); E11.22 Type 2 diabetes mellitus with diabetic chronic kidney disease; I12.9 Hypertensive chronic kidney disease with stage 1 through stage 4 chronic kidney disease, or unspecified chronic kidney disease; N18.3 Chronic kidney disease, stage 3 (moderate); F32.9 Major depressive disorder, single episode, unspecified; Z86.73 Personal history of transient ischemic attack (TIA), and cerebral infarction without residual deficits; E78.5 Hyperlipidemia, unspecified
CPT/HCPCS: 36415; 70496; 70498; 70551; 80048; 80053; 80061; 80178; 81003; 82607; 83036; 83605; 83690; 83735; 83921; 84443; 84484; 85025; 85027; 85651; 87640; 92610; 93005; 93306; 96360; 96361; 96372; 97162; 99284; 99285; A9270; G0378; J1650; Q9967; 81001; 83721; 87086

== ENCOUNTER 2019-06-28 19:09 | Outpatient (CLI) | payer MEDICARE | END 2019-06-28 19:10 | disposition critical access hospital (66) | LOC: EMS 19:09 | PROVIDERS: ATTEND Surgery | DX: R10.31 Right lower quadrant pain (principal) | CPT/HCPCS: A0425; A0427 ==

== ENCOUNTER 2019-06-28 19:38 | Emergency (ER) | payer MEDICARE ==
--- NOTE | 2019-06-28 19:53 | ED Physician Documentation ---
PD HPI ABD PAIN - Stated complaint Stated Complaint: RLQ PAIN - Chief complaint Chief Complaint: Abd Pain - History obtained from History obtained from: Patient, EMS - History of Present Illness Timing - onset: Yesterday Timing - duration: Hours (26) Timing - details: Gradual onset Pain level max: 9 Pain level now: 6 Quality: Aching, Pain Location: RLQ Radiation: No: Chest, , Lower back, Left flank, Left shoulder, Right flank, Right shoulder, Upper back Improved by: Other (Improved with fentanyl with EMS) Worsened by: Other (Nothing). No: Eating, Moving, Breathing, Position, Palpation Associated symptoms: No: Fever, Nausea, Vomiting, Hematemesis, Diarrhea, Constipation, Melena, Hematochezia, Dysuria, Hematuria, Chest pain Similar symptoms before: Has not had sx before Recently seen: Not recently seen - Additional information Additional information: 84-year-old male with right lower quadrant abdominal pain since yesterday. Gradually worsening. Lives at home with his . Normally independent. No trauma. No recent antibiotics. No recent travel. Review of Systems Constitutional: denies: Fever, Chills Cardiac: denies: Chest pain / pressure Respiratory: denies: Cough GI: denies: Vomiting, Constipation, Diarrhea, Hematemesis, Bloody / black stool : denies: Dysuria Skin: denies: Rash Musculoskeletal: denies: Neck pain, Back pain Neurologic: denies: Focal weakness, Numbness, Headache PD PAST MEDICAL HISTORY - Past Medical History Past Medical History: Yes Cardiovascular: Hypertension, High cholesterol Endocrine/Autoimmune: Type 2 diabetes Psych: Depression, Anxiety Derm: Other - Past Surgical History Past Surgical History: Yes Derm: Skin cancer surgery - Present Medications Home Medications: Ambulatory Orders Medication Instructions Recorded Confirmed Aspirin [Carson] 81 mg PO DAILYWM tablet 01/09/19 Atorvastatin [Lipitor] 40 mg PO QPM tablet 01/09/19 Bear 150 mg PO BID capsule 01/09/19 Losartan [Cozaar] 100 mg PO DAILY tablet 01/09/19 Metoprolol Tartrate [Lopressor] 25 mg PO BID tablet 01/09/19 Mirtazapine [Remeron] 45 mg PO QPM tablet 01/09/19 OLANZapine ODT [Zyprexa Odt] 10 mg TL DAILY tablet 01/09/19 buPROPion [Wellbutrin Sr] 150 mg PO DAILY tablet 01/09/19 busPIRone [Buspar] 10 mg PO BID tablet 01/09/19 metFORMIN [Glucophage] 500 mg PO DAILY tablet 01/09/19 Amox/Clav 875/125 [Augmentin] 1 each PO Q12H #20 tablet 06/28/19 - Allergies Allergies/Adverse Reactions: Allergies Allergy/AdvReac Type Severity Reaction Status Date / Time lisinopril Allergy Unknown Verified 06/28/19 19:46 - Social History Does the pt smoke?: No Smoking Status: Never smoker Does the pt drink ETOH?: Yes Does the pt have substance abuse?: No - Immunizations Immunizations are current?: Yes - POLST Patient has POLST: No PD ED PE NORMAL - Vitals Vital signs reviewed: Yes - General General: Alert and oriented X 3, No acute distress - HEENT HEENT: Moist mucous membranes - Neck Neck: Supple, no meningeal sign - Cardiac Cardiac: RRR, Strong equal pulses - Respiratory Respiratory: No respiratory distress, Clear bilaterally - Abdomen Abdomen: Normal bowel sounds, Soft, Non distended, Other (Mild tender to palpation right lower quadrant, no peritoneal signs) - Back Back: No CVA TTP, No spinal TTP - Derm Derm: Warm and dry - Extremities Extremities: No edema, No calf tenderness / cord - Neuro Neuro: Alert and oriented X 3 - Psych Psych: Normal mood, Normal affect Results - Vitals Vitals: Vital Signs - 24 hr 06/28/19 06/28/19 19:46 21:38 Temperature 36.4 C L Heart Rate 77 59 L Respiratory 16 16 Rate Blood Pressure 165/85 H 140/73 H O2 Saturation 100 99 Oxygen O2 Source [] Room air O2 Source Room air - Labs Labs: Laboratory Tests 06/28/19 06/28/19 06/28/19 20:00 20:00 21:35 WBC 12.1 H RBC 3.84 L Hgb 12.6 L Hct 38.9 L MCV 101.3 H MCH 32.8 H MCHC 32.4 RDW 13.1 Plt Count 290 MPV 10.1 Neut # (Auto) 9.3 H Lymph # (Auto) 1.3 L [place] # (Auto) 1.0 Eos # (Auto) 0.5 Baso # (Auto) 0.1 Absolute Nucleated RBC 0.00 Nucleated RBC % 0.0 Sodium 136 Potassium 5.1 H Chloride 103 Carbon Dioxide 21 Anion Gap 12.0 BUN 35 H Creatinine 1.6 H Estimated GFR (MDRD) 41 L Glucose 106 H Calcium 8.4 L Total Bilirubin 0.4 AST 15 ALT 21 Alkaline Phosphatase 98 Total Protein 6.6 L Albumin 3.8 Globulin 2.8 Albumin/Globulin Ratio 1.4 Lipase 34 Last Dose Date Not Reportable Last Dose Time Not Reportable Bear 0.71 - Rads (name of study) CT abdomen pelvis Radiology: Prelim report reviewed, EMP read contemporaneously, See rad report ( Mild diverticulosis, with cecal wall thickening and adjacent fat setting concerning for diverticulitis. ) PD MEDICAL DECISION MAKING - ED course Complexity details: reviewed results, re-evaluated patient, considered differential, d/w patient ED course: 84-year-old male with diverticulitis. Will place on Augmentin. He is well- appearing, nontoxic. Afebrile. Pain well controlled. Tolerating p.o. without difficulty. Patient counseled regarding signs and symptoms for which I believe and urgent re-evaluation would be necessary. Patient with good understanding of and agreement to plan and is comfortable going home at this time This document was made in part using voice recognition software. While efforts are made to proofread this document, sound alike and grammatical errors may occur. Departure - Departure Disposition: 01 Home, Self Care Clinical Impression: Diverticulitis Condition: Good Instructions: ED Abdominal Pain Appendx Poss, ED Diverticulitis Follow-Up: your,doctor in 3 days [Other] Prescriptions: Amox/Clav 875/125 [Augmentin] 1 each PO Q12H #20 tablet Comments: Return if you worsen. Follow up with your doctor in 3 days for further care. Return for worsening pain, fevers, or any other new or worsening symptoms. You appear to have diverticulitis on your CAT scan tonight.
[2019-06-28 20:04] LABS: BASOPHILS # (AUTO) 0.1 10^3/uL (0.0-0.1); BASOPHILS % (AUTO) 0.7 %; EOSINOPHILS # (AUTO) 0.5 10^3/uL (0.0-0.7); HGB - HEMOGLOBIN 12.6 g/dL (14.0-18.0); LYMPHOCYTES # (AUTO) 1.3 10^3/uL (1.5-3.5); LYMPHOCYTES % (AUTO) 10.4 %; MEAN CORPUSCULAR HEMOGLOBIN 32.8 pg (27.0-31.0); MEAN CORPUSCULAR HGB CONC 32.4 g/dL (32.0-36.0); MEAN CORPUSCULAR VOLUME 101.3 fL (80.0-94.0); MEAN PLATELET VOLUME 10.1 fL (7.4-11.4); MONOCYTES % (AUTO) 8.3 %; NEUTROPHILS # (AUTO) 9.3 10^3/uL (1.5-6.6); NEUTROPHILS % (AUTO) 76.2 %; PLT - PLATELET COUNT 290 10^3/uL (130-450); RED BLOOD COUNT 3.84 10^6/uL (4.70-6.10); RED CELL DISTRIBUTION WIDTH 13.1 % (12.0-15.0); WHITE BLOOD COUNT 12.1 x10^3/uL (4.8-10.8)
[2019-06-28 20:18] LABS: ALBUMIN 3.8 g/dL (3.2-5.5); ALBUMIN/GLOBULIN RATIO 1.4 (1.0-2.2); BILIRUBIN,TOTAL 0.4 mg/dL (0.2-1.0); CALCIUM 8.4 mg/dL (8.5-10.3); CREATININE 1.6 mg/dL (0.6-1.2); TOTAL PROTEIN 6.6 g/dL (6.7-8.2)
[2019-06-28] MEDS ORDERED: IOVERSOL 320 100 ML VIAL IVP ONE ×2 (20:26→21:27)
[2019-06-28] MEDS ORDERED: MORPHINE 2 MG/ML CARPUJECT IVP STA (21:31)
--- NOTE | 2019-06-28 21:59 | CT Report ---
Reason: Abdominal pain, acute, RLQ Procedure Date: 06/28/2019 Accession Number: [id number] / [id number] Procedure: CT - Abdomen/Pelvis W CPT Code: Final Report FULL RESULT: EXAM: CT ABDOMEN AND PELVIS EXAM DATE: 06/28/2019 09:25 PM. CLINICAL HISTORY: Right lower quadrant pain for 2 days. COMPARISONS: None. TECHNIQUE: Routine helical CT imaging was performed through the abdomen and pelvis. IV contrast: 70 cc of Optiray 320. Enteric contrast: No. Reconstructions: Coronal and sagittal. In accordance with CT protocol optimization, one or more of the following dose reduction techniques were utilized for this exam: automated exposure control, adjustment of mA and/or KV based on patient size, or use of iterative reconstructive technique. FINDINGS: Lung Bases: Unremarkable. Liver: Normal. No masses. Gallbladder/Bile Ducts: Unremarkable. Spleen: Normal. Pancreas: Normal. Adrenal Glands: Normal. Kidneys: Small cortical cyst on the right, otherwise unremarkable. Peritoneal Cavity/Bowel: Mild diverticulosis, with cecal wall thickening and adjacent fat stranding noted. No free fluid, free air or adenopathy. No masses. Nonvisualized appendix. Pelvic Organs: Normal. The bladder and visualized pelvic organs are within normal limits. Vasculature: No aortic enlargement. Advanced atherosclerotic calcification. Bones: No significant abnormality. Other: Penile prosthesis noted. IMPRESSION: Mild diverticulosis, with cecal wall thickening and adjacent fat setting concerning for diverticulitis. RADIA
[2019-06-28] MEDS ORDERED: AMOX/CLAV 875 MG/125 MG TABLET PO STA (22:02)
[2019-06-28 22:13] LABS: LITHIUM 0.71 mmol/L
[2019-06-28 23:12] VITALS: BP 146/90
== END 2019-06-28 23:11 | disposition home or self-care (01) ==
LOC: EDUNIT# → ED 19:38
DX: K57.92 Diverticulitis of intestine, part unspecified, without perforation or abscess without bleeding (principal); I10 Essential (primary) hypertension; E11.9 Type 2 diabetes mellitus without complications; Z79.84 Long term (current) use of oral hypoglycemic drugs
CPT/HCPCS: 36415; 74177; 80053; 80178; 83690; 85025; 96374; 99284; A9270; Q9967

== ENCOUNTER 2019-09-03 13:02 | Emergency (ER) | payer MEDICARE ==
--- NOTE | 2019-09-03 13:28 | ED Physician Documentation ---
PD HPI ABD PAIN - Stated complaint Stated Complaint: MALE - Chief complaint Chief Complaint: Abd Pain - History obtained from History obtained from: Patient, Family - History of Present Illness Timing - onset: Other (84-year-old gentleman is always had troubles with constipation. Has not had a bowel movement with in about a week despite using some prune juice and tried an enema yesterday. He is not in pain.) Review of Systems Constitutional: denies: Fever, Chills GI: reports: Constipation. denies: Abdominal Pain, Nausea, Vomiting, Hematemesis, Bloody / black stool PD PAST MEDICAL HISTORY - Past Medical History Cardiovascular: Hypertension, High cholesterol Endocrine/Autoimmune: Type 2 diabetes Psych: Depression, Anxiety Derm: Other - Past Surgical History Past Surgical History: Yes Derm: Skin cancer surgery - Present Medications Home Medications: Ambulatory Orders Medication Instructions Recorded Confirmed Aspirin [Carson] 81 mg PO DAILYWM tablet 01/09/19 Atorvastatin [Lipitor] 40 mg PO QPM tablet 01/09/19 [place] 150 mg PO BID capsule 01/09/19 Losartan [Cozaar] 100 mg PO DAILY tablet 01/09/19 Metoprolol Tartrate [Lopressor] 25 mg PO BID tablet 01/09/19 Mirtazapine [Remeron] 45 mg PO QPM tablet 01/09/19 OLANZapine ODT [Zyprexa Odt] 10 mg TL DAILY tablet 01/09/19 buPROPion [Wellbutrin Sr] 150 mg PO DAILY tablet 01/09/19 busPIRone [Buspar] 10 mg PO BID tablet 01/09/19 metFORMIN [Glucophage] 500 mg PO DAILY tablet 01/09/19 Amox/Clav 875/125 [Augmentin] 1 each PO Q12H #20 tablet 06/28/19 Polyethylene Glycol 3350 [Miralax] 17 gm PO DAILY PRN #1 bottle 09/03/19 - Allergies Allergies/Adverse Reactions: Allergies Allergy/AdvReac Type Severity Reaction Status Date / Time lisinopril Allergy Unknown Verified 09/03/19 13:14 - Social History Does the pt smoke?: No Smoking Status: Never smoker Does the pt drink ETOH?: Yes Does the pt have substance abuse?: No - Immunizations Immunizations are current?: Yes - POLST Patient has POLST: No PD ED PE NORMAL - Vitals Vital signs reviewed: Yes - General General: Alert and oriented X 3, No acute distress - Abdomen Abdomen: Normal bowel sounds, Soft, Non tender - Rectal Rectal: Other (There is a soft fecal impaction in the vault which is partially disimpacted on exam and then an enema was placed. Brown stool.) - Neuro Neuro: Alert and oriented X 3, Normal speech Results - Vitals Vitals: Vital Signs - 24 hr 09/03/19 13:09 Temperature 36.4 C L Heart Rate 67 Respiratory 18 Rate Blood Pressure 163/94 H O2 Saturation 100 Oxygen O2 Source [With Activity] Room air O2 Source Room air PD MEDICAL DECISION MAKING - ED course ED course: 84-year-old gentleman presents with fecal impaction. Using a combination of manual disimpaction and enema he had a good bowel movement here and felt better. Departure - Departure Disposition: 01 Home, Self Care Clinical Impression: Fecal impaction Condition: Good Record reviewed to determine appropriate education?: Yes Instructions: ED Impaction Fecal Treated Prescriptions: Polyethylene Glycol 3350 [Miralax] 17 gm PO DAILY PRN #1 bottle PRN Reason: Constipation Comments: Take a bottle of existing magnesium citrate when you get home. If you have persistent problems you can fill the prescription for MiraLAX as well. Return if worsening. Follow-up with your primary care physician.
[2019-09-03] MEDS ORDERED: MAGNESIUM CITRATE 296 ML BOTTLE PO STA (13:45)
[2019-09-03 14:10] VITALS: BP 148/67
== END 2019-09-03 14:10 | disposition home or self-care (01) ==
LOC: ED 13:02
DX: K56.41 Fecal impaction (principal); I10 Essential (primary) hypertension; E11.9 Type 2 diabetes mellitus without complications; Z79.84 Long term (current) use of oral hypoglycemic drugs
CPT/HCPCS: 99282; 99283; A9270

== ENCOUNTER 2019-10-18 22:57 | Emergency (ER) | payer MEDICARE ==
--- NOTE | 2019-10-18 23:21 | ED Physician Documentation ---
PD HPI MALE - Stated complaint Stated Complaint: M - Chief complaint Chief Complaint: Abd Pain - History obtained from History obtained from: Patient - History of Present Illness Timing - onset: Today (had not been able to urinate since this morning. Feeling very full bladder and uncomfortable at this time.) Timing - duration: Days (1 day unable to urinate, with some hesitancy the day prior.) Timing - details: Abrupt onset, Still present Associated symptoms: Unable to urinate. No: Hematuria, Discharge Similar symptoms before: Has not had sx before Review of Systems Constitutional: denies: Fever, Chills Nose: denies: Rhinorrhea / runny nose, Congestion Throat: denies: Sore throat Respiratory: denies: Cough GI: reports: Constipation (ongoing problem and had not had BM for 3 days, but this is not an unusual timeframe for no BM for him.). denies: Abdominal Pain, Diarrhea : reports: Unable to Void. denies: Dysuria, Discharge PD PAST MEDICAL HISTORY - Past Medical History Cardiovascular: Hypertension, High cholesterol Endocrine/Autoimmune: Type 2 diabetes GI: Chronic constipation : None Psych: Depression, Anxiety Derm: Other - Past Surgical History Past Surgical History: Yes Derm: Skin cancer surgery - Present Medications Home Medications: Ambulatory Orders Medication Instructions Recorded Confirmed Aspirin [Carson] 81 mg PO DAILYWM tablet 01/09/19 Atorvastatin [Lipitor] 40 mg PO QPM tablet 01/09/19 [place] 150 mg PO BID capsule 01/09/19 Losartan [Cozaar] 100 mg PO DAILY tablet 01/09/19 Metoprolol Tartrate [Lopressor] 25 mg PO BID tablet 01/09/19 Mirtazapine [Remeron] 45 mg PO QPM tablet 01/09/19 OLANZapine ODT [Zyprexa Odt] 10 mg TL DAILY tablet 01/09/19 buPROPion [Wellbutrin Sr] 150 mg PO DAILY tablet 01/09/19 busPIRone [Buspar] 10 mg PO BID tablet 01/09/19 metFORMIN [Glucophage] 500 mg PO DAILY tablet 01/09/19 Amox/Clav 875/125 [Augmentin] 1 each PO Q12H #20 tablet 06/28/19 Polyethylene Glycol 3350 [Miralax] 17 gm PO DAILY PRN #1 bottle 09/03/19 Doxazosin [Cardura] 1 mg PO DAILY #20 tablet 10/19/19 - Allergies Allergies/Adverse Reactions: Allergies Allergy/AdvReac Type Severity Reaction Status Date / Time lisinopril Allergy Unknown Verified 10/18/19 23:04 - Social History Does the pt smoke?: No Smoking Status: Never smoker Does the pt drink ETOH?: Yes Does the pt have substance abuse?: No - Immunizations Immunizations are current?: Yes - POLST Patient has POLST: No PD ED PE NORMAL - Vitals Vital signs reviewed: Yes - General General: Alert and oriented X 3, No acute distress, Well developed/nourished - HEENT HEENT: Other (hard of hearing) - Neck Neck: Supple, no meningeal sign, No adenopathy - Cardiac Cardiac: RRR, No murmur - Respiratory Respiratory: Clear bilaterally - Abdomen Abdomen: Normal bowel sounds, Soft, Non distended, No organomegaly, Other (fullness in suprapubic area. ) - Male Male : Other (normal external genitalia. ) - Rectal Rectal: Other (moderate soft stool in vault without impaction nor obvious pressure to the prostate area. Brown color.) - Back Back: No CVA TTP - Derm Derm: Normal color Results - Vitals Vitals: Vital Signs - 24 hr 10/18/19 10/19/19 10/19/19 23:01 00:34 00:46 Temperature 36.7 C 36.4 C L Heart Rate 66 88 Respiratory 18 18 Rate Blood Pressure 159/95 H 124/67 O2 Saturation 100 98 Oxygen O2 Source [With Activity] Room air O2 Source Room air - Labs Labs: Laboratory Tests 10/18/19 10/18/19 23:15 23:42 Sodium 132 L Potassium 4.7 Chloride 100 L Carbon Dioxide 22 Anion Gap 10.0 BUN 27 H Creatinine 1.4 H Estimated GFR (MDRD) 48 L Glucose 121 H Calcium 9.2 Total Bilirubin 0.6 AST 22 ALT 34 Alkaline Phosphatase 84 Total Protein 6.3 L Albumin 3.8 Globulin 2.5 Albumin/Globulin Ratio 1.5 Lipase 29 Urine Color YELLOW Urine Clarity CLEAR Urine pH 7.0 Ur Specific Harold <=1.005 Urine Protein NEGATIVE Urine Glucose (UA) NEGATIVE Urine Ketones NEGATIVE Urine Occult Blood NEGATIVE Urine Nitrite NEGATIVE Urine Bilirubin NEGATIVE Urine Urobilinogen 0.2 (NORMAL) Ur Leukocyte Esterase NEGATIVE Ur Microscopic Review NOT INDICATED Urine Culture Comments NOT INDICATED PD MEDICAL DECISION MAKING - ED course Complexity details: re-evaluated patient (he is feeling much better with bladder emptying. Large amount clear urine out. ), considered differential (urinary retention with bladder scanner showing full bladder. Vásquez by nursing. ), d/w patient Departure - Departure Disposition: 01 Home, Self Care Clinical Impression: Acute urinary retention Condition: Stable Record reviewed to determine appropriate education?: Yes Instructions: ED Catheter Care Vásquez, ED Retention Urinary Male Follow-Up: BETHANIE VILLARREAL ARNP [Primary Care Provider] - Prescriptions: Doxazosin [Cardura] 1 mg PO DAILY #20 tablet Comments: Presume your urinary retention is related to enlargement of the prostate. You can take doxazosin 1 mg daily to try to reduce prostate size. There is no signs of urinary infection on your urine test. You had soft stool in the vault so does not seem likely that impaction/constipation is causing your urinary retention. Follow-up with your primary care next week for recheck and Vásquez catheter removal after having been on the prostate medicine for at least several days to week. Discharge Date/Time: 10/19/19 00:47
[2019-10-18 23:30] LABS: BILIRUBIN,URINE NEGATIVE (NEGATIVE); GLUCOSE, URINE (UA) NEGATIVE (NEGATIVE); KETONES,URINE (UA) NEGATIVE (NEGATIVE); LEUKOCYTE ESTERASE, URINE NEGATIVE (NEGATIVE); NITRITE,URINE NEGATIVE (NEGATIVE); OCCULT BLOOD,URINE NEGATIVE (NEGATIVE); PROTEIN,URINE NEGATIVE (NEGATIVE); UROBILINOGEN,URINE 0.2 (NORMAL) E.U./dL (NORMAL)
[2019-10-18 23:31] LABS: CLARITY,URINE CLEAR (CLEAR)
[2019-10-19 00:07] LABS: ALBUMIN 3.8 g/dL (3.2-5.5); ALBUMIN/GLOBULIN RATIO 1.5 (1.0-2.2); BILIRUBIN,TOTAL 0.6 mg/dL (0.2-1.0); CALCIUM 9.2 mg/dL (8.5-10.3); CREATININE 1.4 mg/dL (0.6-1.2); TOTAL PROTEIN 6.3 g/dL (6.7-8.2)
[2019-10-19] MEDS ORDERED: DOXAZOSIN 1 MG TABLET PO STA (00:12)
[2019-10-19 00:35] VITALS: BP 124/67
== END 2019-10-19 00:47 | disposition home or self-care (01) ==
LOC: ED 22:57
DX: R33.9 Retention of urine, unspecified (principal); I10 Essential (primary) hypertension; E11.9 Type 2 diabetes mellitus without complications; Z79.84 Long term (current) use of oral hypoglycemic drugs; Z79.82 Long term (current) use of aspirin
CPT/HCPCS: 36415; 51702; 51798; 80053; 81003; 83690; 99283; 99284; A9270; 81001; 87086

== ENCOUNTER 2020-08-02 14:55 | Emergency (ER) | payer MEDICARE ==
[2020-08-02] MEDS ORDERED: PROPARACAINE 0.5% OPHTH DROPS 15 ML EACHEYE STA (15:14)
--- NOTE | 2020-08-02 15:41 | ED Physician Documentation ---
History of Present Illness - Stated complaint Stated Complaint: LEFT EYE SWELLING - Chief complaint Chief Complaint: Heent - History obtained from History obtained from: Patient, Family - Additonal information Additional information: 85-year-old gentleman with glaucoma presents with 3 days of progressive left eye pain and difficulty with site. There is some yellow drainage. He is compliant with his antiglaucoma drops. Review of Systems Ten Systems: 10 systems reviewed and negative Constitutional: reports: Reviewed and negative Eyes: reports: Reviewed and negative Ears: reports: Reviewed and negative Nose: reports: Reviewed and negative Throat: reports: Reviewed and negative PD PAST MEDICAL HISTORY - Past Medical History Cardiovascular: Hypertension, High cholesterol Endocrine/Autoimmune: Type 2 diabetes GI: Chronic constipation : None Psych: Depression, Anxiety Derm: Other - Past Surgical History Past Surgical History: Yes Derm: Skin cancer surgery - Present Medications Home Medications: Ambulatory Orders Medication Instructions Recorded Confirmed Aspirin [Carson] 81 mg PO DAILYWM tablet 01/09/19 Atorvastatin [Lipitor] 40 mg PO QPM tablet 01/09/19 [place] [[place] Carbonate] 150 mg PO BID capsule 01/09/19 Losartan [Cozaar] 100 mg PO DAILY tablet 01/09/19 Metoprolol Tartrate [Lopressor] 25 mg PO BID tablet 01/09/19 Mirtazapine [Remeron] 45 mg PO QPM tablet 01/09/19 OLANZapine ODT [Zyprexa Odt] 10 mg TL DAILY tablet 01/09/19 buPROPion [Wellbutrin Sr] 150 mg PO DAILY tablet 01/09/19 busPIRone [Buspar] 10 mg PO BID tablet 01/09/19 metFORMIN [Glucophage] 500 mg PO DAILY tablet 01/09/19 Amox/Clav 875/125 [Augmentin] 1 each PO Q12H #20 tablet 06/28/19 polyethylene glycoL 3350 [Miralax] 17 gm PO DAILY PRN #1 bottle 09/03/19 Doxazosin [Cardura] 1 mg PO DAILY #20 tablet 10/19/19 Amox/Clav 875/125 [Augmentin] 1 each PO Q12H #20 tablet 08/02/20 Erythromycin Base [Erythromycin 1 appful OP 5XD 7 Days #1 gm 08/02/20 Ophthalmic Ointment] - Allergies Allergies/Adverse Reactions: Allergies Allergy/AdvReac Type Severity Reaction Status Date / Time lisinopril Allergy Unknown Verified 08/02/20 14:59 - Social History Does the pt smoke?: No Smoking Status: Never smoker Does the pt drink ETOH?: Yes Does the pt have substance abuse?: No - Immunizations Immunizations are current?: Yes - POLST Patient has POLST: No PD ED PE NORMAL - Vitals Vital signs reviewed: Yes - General General: Alert and oriented X 3, No acute distress - HEENT HEENT: Other (There is mild swelling of the inferior lid of the left eye. Both pupils are quite small. There is some difficulty looking up with the left eye. Pressures are 13 on the right 14 on the left.) - Neck Neck: Supple, no meningeal sign, No bony TTP - Cardiac Cardiac: RRR, No murmur - Respiratory Respiratory: No respiratory distress, Clear bilaterally - Abdomen Abdomen: Non tender - Neuro Neuro: Alert and oriented X 3, No motor deficit, No sensory deficit, Normal speech Results - Vitals Vitals: Vital Signs - 24 hr 08/02/20 14:59 Temperature 36.5 C Heart Rate 78 Respiratory 16 Rate Blood Pressure 141/68 H O2 Saturation 97 Oxygen O2 Source [With Activity] Room air O2 Source Room air - Labs Labs: Laboratory Tests 08/02/20 08/02/20 15:53 15:53 WBC 8.8 RBC 3.89 L Hgb 13.1 L Hct 39.7 L MCV 102.1 H MCH 33.7 H MCHC 33.0 RDW 12.5 Plt Count 266 MPV 9.9 Neut # (Auto) 7.2 H Lymph # (Auto) 0.9 L [place] # (Auto) 0.4 Eos # (Auto) 0.3 Baso # (Auto) 0.1 Absolute Nucleated RBC 0.00 Nucleated RBC % 0.0 Sodium 135 Potassium 4.6 Chloride 102 Carbon Dioxide 22 Anion Gap 11.0 BUN 31 H Creatinine 1.7 H Estimated GFR (MDRD) 38 L Glucose 255 H Calcium 9.1 - Rads (name of study) CT Orbit with contrast Radiology: EMP read contemporaneously (Mild left periorbital superficial soft tissue cellulitis without post septal involvement. Prior postoperative changes of the sinuses noted.) PD MEDICAL DECISION MAKING - ED course ED course: 85-year-old gentleman with orbital versus preorbital cellulitis of the left eye. CT shows no evidence of orbital cellulitis. He is treated with topical erythromycin oral Augmentin. Departure - Departure Disposition: 01 Home, Self Care Clinical Impression: Preseptal cellulitis of left eye Condition: Good Record reviewed to determine appropriate education?: Yes Instructions: ED Cellulitis Gi[place]anna Orbital Prescriptions: Amox/Clav 875/125 [Augmentin] 1 each PO Q12H #20 tablet Erythromycin Base [Erythromycin Ophthalmic Ointment] 1 appful OP 5XD 7 Days #1 gm Comments: Follow-up with your eye physician as scheduled, sooner if worsening or not improving over the next 24 to 48 hours. You were seen today for left eye swelling. Your blood work was notable for a white count of 8.8, hemoglobin 13.1, hematocrit 39.7, platelet count of 266. Your chemistries were normal with the exception of an elevated BUN at 31, and a creatinine of 1.7. You have been in this range before. CT of the orbits with IV contrast as follows: CONTRAST: IV CONTRAST: Optiray 320 ml: 100 PO CONTRAST: *NO PO CONTRAST TECHNIQUE: After the administration of intravenous contrast, 3.0 mm axial images acquired through the orbits, with coronal reformatting. COMPARISON: Correlation is made with brain CT angiogram, 01/08/2019. Correlation is also made with brain MRI, 01/08/2019. FINDINGS: Image quality: Excellent. Orbits: Mild asymmetric soft tissue enhancement can be seen superficially involving the left periorbital region. Globes are symmetrical. The optic nerves are normal in size and enhancement. No retrobulbar masses or fat abnormalities. The extra-ocular muscles are normal and symmetrical in appearance. Lacrimal glands are normal. Optic chiasm is normal. Intracranial: The pituitary gland is normal, without sellar or suprasellar masses. Visualized cerebral hemispheres, brainstem, and spinal cord appear normal. Bones and sinuses: Visualized calvarium and facial bones appear intact. Visualized sinuses and mastoids are clear. Note is made of postoperative change, with bilateral antrectomy, as well as removal of numerous portions of the ethmoid air cell septations. IMPRESSION: Mild left periorbital superficial soft tissue cellulitis, without postseptal involvement. Prior postoperative change of the sinuses noted.
[2020-08-02] MEDS ORDERED: IOVERSOL 320 100 ML VIAL IVP ONE ×2 (15:53→17:18)
[2020-08-02 16:02] LABS: BASOPHILS # (AUTO) 0.1 10^3/uL (0.0-0.1); BASOPHILS % (AUTO) 0.7 %; EOSINOPHILS # (AUTO) 0.3 10^3/uL (0.0-0.7); EOSINOPHILS % (AUTO) 2.8 %; HCT - HEMATOCRIT 39.7 % (42.0-52.0); HGB - HEMOGLOBIN 13.1 g/dL (14.0-18.0); LYMPHOCYTES # (AUTO) 0.9 10^3/uL (1.5-3.5); LYMPHOCYTES % (AUTO) 10.1 %; MEAN CORPUSCULAR HEMOGLOBIN 33.7 pg (27.0-31.0); MEAN CORPUSCULAR VOLUME 102.1 fL (80.0-94.0); MEAN PLATELET VOLUME 9.9 fL (7.4-11.4); MONOCYTES # (AUTO) 0.4 10^3/uL (0.0-1.0); MONOCYTES % (AUTO) 4.3 %; NEUTROPHILS # (AUTO) 7.2 10^3/uL (1.5-6.6); NEUTROPHILS % (AUTO) 81.6 %; PLT - PLATELET COUNT 266 10^3/uL (130-450); RED BLOOD COUNT 3.89 10^6/uL (4.70-6.10); RED CELL DISTRIBUTION WIDTH 12.5 % (12.0-15.0); WHITE BLOOD COUNT 8.8 x10^3/uL (4.8-10.8)
[2020-08-02] MEDS ORDERED: ERYTHROMYCIN OPHTH OINT 1 GM TUBE LEFTEYE STA (16:11)
[2020-08-02 16:23] LABS: CALCIUM 9.1 mg/dL (8.5-10.3); CREATININE 1.7 mg/dL (0.6-1.2); POTASSIUM 4.6 mmol/L (3.5-5.0)
--- NOTE | 2020-08-02 17:30 | CT Report ---
PROCEDURE: ORBITS W INDICATIONS: poss orbital cellulitis CONTRAST: IV CONTRAST: Optiray 320 ml: 100 PO CONTRAST: *NO PO CONTRAST TECHNIQUE: After the administration of intravenous contrast, 3.0 mm axial images acquired through the orbits, wi th coronal reformatting. COMPARISON: Correlation is made with brain CT angiogram, 01/08/2019. Correlation is also made with b rain MRI, 01/08/2019. FINDINGS: Image quality: Excellent. Orbits: Mild asymmetric soft tissue enhancement can be seen superficially involving the left periorb ital region. Globes are symmetrical. The optic nerves are normal in size and enhancement. No retrobulbar masses or fat abnormalities. The extra-ocular muscles are normal and symmetrical in appearance. Lacrimal g lands are normal. Optic chiasm is normal. Intracranial: The pituitary gland is normal, without sellar or suprasellar masses. Visualized cereb ral hemispheres, brainstem, and spinal cord appear normal. Bones and sinuses: Visualized calvarium and facial bones appear intact. Visualized sinuses and mast oids are clear. Note is made of postoperative change, with bilateral antrectomy, as well as removal of numerous portions of the ethmoid air cell septations. IMPRESSION: Mild left periorbital superficial soft tissue cellulitis, without postseptal involvement. Prior postoperative change of the sinuses noted. Reviewed by: Chris Soliz MD on 08/02/2020 4:29 PM [facility] Approved by: Chris Soliz MD on 08/02/2020 4:29 PM J[facility] Station ID: [id number]
[2020-08-02] MEDS ORDERED: AMOX/CLAV 875 MG/125 MG TABLET PO STA (17:43)
[2020-08-02 17:52] VITALS: BP 156/89
== END 2020-08-02 17:57 | disposition home or self-care (01) ==
LOC: ED 14:55
DX: L03.213 Periorbital cellulitis (principal); H40.9 Unspecified glaucoma; I10 Essential (primary) hypertension; E11.9 Type 2 diabetes mellitus without complications; Z79.84 Long term (current) use of oral hypoglycemic drugs; Z79.82 Long term (current) use of aspirin
CPT/HCPCS: 36415; 70481; 80048; 85025; 99283; 99284; A9270; J3490; Q9967

== ENCOUNTER 2020-10-04 07:18 | Outpatient (CLI) | payer MEDICARE | END 2020-10-04 07:19 | disposition critical access hospital (66) | LOC: EMS 07:18 | DX: R53.1 Weakness (principal); R82.998 Other abnormal findings in urine | CPT/HCPCS: A0425; A0427 ==

== ENCOUNTER 2020-10-04 07:48 | Emergency (ER) | payer MEDICARE ==
--- NOTE | 2020-10-04 08:00 | ED Physician Documentation ---
History of Present Illness - Stated complaint Stated Complaint: DEHYDRATION - History obtained from History obtained from: Patient, EMS - Additonal information Additional information: Patient is brought to the emergency department by EMS for chief complaint of generalized weakness. Patient states he has noticed he has been getting weaker, but does not really know exactly why. His told EMS that the patient seems to have been worsening for about the past couple months but especially, over the last couple of weeks. Patient denies any specific symptoms, such as shortness of breath, chest pain, abdominal pain, nausea, dysuria, or cough. No fevers. The patient has not had any medication changes. His gives him his meds and has for very long time. The patient has been a little confused today and does not remember exactly what his address is. He recognizes this and states this is not normal for him. No other complaints at this time. He states he drinks about 4 cups of water per day. Review of Systems Ten Systems: 10 systems reviewed and negative Constitutional: reports: Reviewed and negative Eyes: reports: Reviewed and negative Ears: reports: Reviewed and negative Nose: reports: Reviewed and negative Throat: reports: Reviewed and negative Cardiac: reports: Reviewed and negative Respiratory: reports: Reviewed and negative GI: reports: Reviewed and negative : reports: Reviewed and negative Skin: reports: Reviewed and negative Musculoskeletal: reports: Reviewed and negative Neurologic: reports: Generalized weakness, Confused Psychiatric: reports: Reviewed and negative Endocrine: reports: Reviewed and negative Immunocompromised: reports: Reviewed and negative PD PAST MEDICAL HISTORY - Past Medical History Cardiovascular: Hypertension, High cholesterol Endocrine/Autoimmune: Type 2 diabetes GI: Chronic constipation : None Psych: Depression, Anxiety Derm: Other - Past Surgical History Past Surgical History: Yes Derm: Skin cancer surgery - Present Medications Home Medications: Ambulatory Orders Medication Instructions Recorded Confirmed Aspirin [Carson] 81 mg PO DAILYWM tablet 01/09/19 10/04/20 Atorvastatin [Lipitor] 40 mg PO QPM tablet 01/09/19 [place] [[place] Carbonate] 150 mg PO BID capsule 01/09/19 10/04/20 Losartan [Cozaar] 100 mg PO DAILY tablet 01/09/19 Metoprolol Tartrate [Lopressor] 25 mg PO BID tablet 01/09/19 10/04/20 Mirtazapine [Remeron] 45 mg PO QPM tablet 01/09/19 10/04/20 OLANZapine ODT [Zyprexa Odt] 10 mg TL DAILY tablet 01/09/19 10/04/20 buPROPion [Wellbutrin Sr] 150 mg PO DAILY tablet 01/09/19 10/04/20 busPIRone [Buspar] 10 mg PO BID tablet 01/09/19 10/04/20 metFORMIN [Glucophage] 500 mg PO DAILY tablet 01/09/19 Amox/Clav 875/125 [Augmentin] 1 each PO Q12H #20 tablet 06/28/19 polyethylene glycoL 3350 [Miralax] 17 gm PO DAILY PRN #1 bottle 09/03/19 Doxazosin [Cardura] 1 mg PO DAILY #20 tablet 10/19/19 Amox/Clav 875/125 [Augmentin] 1 each PO Q12H #20 tablet 08/02/20 Erythromycin Base [Erythromycin 1 appful OP 5XD 7 Days #1 gm 08/02/20 Ophthalmic Ointment] Finasteride [Proscar] 1 tab PO DAILY 10/04/20 10/04/20 Tamsulosin [Flomax] 1 tab PO DAILY 10/04/20 10/04/20 - Allergies Allergies/Adverse Reactions: Allergies Allergy/AdvReac Type Severity Reaction Status Date / Time lisinopril Allergy Unknown Verified 10/04/20 08:02 - Social History Does the pt smoke?: No Smoking Status: Never smoker Does the pt drink ETOH?: Yes Does the pt have substance abuse?: No - Immunizations Immunizations are current?: Yes - POLST Patient has POLST: No PD ED PE NORMAL - Vitals Vital signs reviewed: Yes - General General: No acute distress, Well developed/nourished, Other (You patient is alert and answers questions appropriately.) - HEENT HEENT: PERRL, EOMI, Moist mucous membranes - Neck Neck: Supple, no meningeal sign - Cardiac Cardiac: RRR, No murmur, Strong equal pulses - Respiratory Respiratory: No respiratory distress, Clear bilaterally - Abdomen Abdomen: Soft, Non tender, Non distended - Derm Derm: Normal color, Warm and dry, No rash - Extremities Extremities: No deformity, No edema, No calf tenderness / cord - Neuro Neuro: concrete analyst 2-12 intact, Normal speech, Other (Alert, appropriate. Remainder of neuro exam is grossly intact.) - Psych Psych: Normal mood, Normal affect Results - Vitals Vitals: Vital Signs - 24 hr 10/04/20 10:19 Heart Rate 63 Respiratory 15 Rate Blood Pressure 156/64 H O2 Saturation 99 Oxygen O2 Source [With Activity] Room air O2 Source Room air - EKG (time done) 0815 Rate: Rate (enter#) (64) Rhythm: Atrial fibrillation [place]: Normal QRS: Normal Ischemia: Normal ST segments Compare to prior EKG: Old EKG unavailable Computer interpretation: Agree with computer - Labs Labs: Laboratory Tests 10/04/20 10/04/20 10/04/20 08:13 08:13 08:13 WBC 8.0 RBC 3.66 L Hgb 12.2 L Hct 37.6 L MCV 102.7 H MCH 33.3 H MCHC 32.4 RDW 12.2 Plt Count 246 MPV 9.9 Neut # (Auto) 6.6 Lymph # (Auto) 0.[address] # (Auto) 0.5 Eos # (Auto) 0.2 Baso # (Auto) 0.1 Absolute Nucleated RBC 0.00 Nucleated RBC % 0.0 Sodium 136 Potassium 4.9 Chloride 106 Carbon Dioxide 25 Anion Gap 5.0 L BUN 33 H Creatinine 1.7 H Estimated GFR (MDRD) 38 L Glucose 171 H Calcium 8.4 L Total Bilirubin 0.6 AST 13 ALT 22 Alkaline Phosphatase 73 Total Protein 6.2 L Albumin 3.7 Globulin 2.5 Albumin/Globulin Ratio 1.5 Lipase 28 Urine Color Urine Clarity Urine pH Ur Specific [place] Urine Protein Urine Glucose (UA) Urine Ketones Urine Occult Blood Urine Nitrite Urine Bilirubin Urine Urobilinogen Ur Leukocyte Esterase Ur Microscopic Review Urine Culture Comments Nasal Adenovirus (PCR) NOT DETECTED Nasal B. parapertussis DNA (PCR) NOT DETECTED Nasal Coronavir 229E PCR NOT DETECTED Nasal Coronavir HKU1 PCR NOT DETECTED Nasal Coronavir NL63 PCR NOT DETECTED Nasal Coronavir OC43 PCR NOT DETECTED Nasal Enterovir/Rhinovir PCR NOT DETECTED Nasal Influenza B PCR NOT DETECTED Nasal Influenza A PCR NOT DETECTED Nasal Parainfluen 1 PCR NOT DETECTED Nasal Parainfluen 2 PCR NOT DETECTED Nasal Parainfluen 3 PCR NOT DETECTED Nasal Parainfluen 4 PCR NOT DETECTED Nasal RSV (PCR) NOT DETECTED Nasal B.pertussis DNA PCR NOT DETECTED Nasal C.pneumoniae (PCR) NOT DETECTED August Human Metapneumo PCR NOT DETECTED Nasal M.pneumoniae (PCR) NOT DETECTED Nasal SARS-CoV-2 (PCR) NOT DETECTED 08/09/21 09:13 WBC RBC Hgb Hct MCV MCH MCHC RDW Plt Count MPV Neut # (Auto) Lymph # (Auto) Lane # (Auto) Eos # (Auto) Baso # (Auto) Absolute Nucleated RBC Nucleated RBC % Sodium Potassium Chloride Carbon Dioxide Anion Gap BUN Creatinine Estimated GFR (MDRD) Glucose Calcium Total Bilirubin AST ALT Alkaline Phosphatase Total Protein Albumin Globulin Albumin/Globulin Ratio Lipase Urine Color YELLOW Urine Clarity CLEAR Urine pH 6.5 Ur Specific [place] 1.010 Urine Protein NEGATIVE Urine Glucose (UA) NEGATIVE Urine Ketones NEGATIVE Urine Occult Blood NEGATIVE Urine Nitrite NEGATIVE Urine Bilirubin NEGATIVE Urine Urobilinogen 0.2 (NORMAL) Ur Leukocyte Esterase NEGATIVE Ur Microscopic Review NOT INDICATED Urine Culture Comments NOT INDICATED Nasal Adenovirus (PCR) Nasal B. parapertussis DNA (PCR) Nasal Coronavir 229E PCR Nasal Coronavir HKU1 PCR Nasal Coronavir NL63 PCR Nasal Coronavir OC43 PCR Nasal Enterovir/Rhinovir PCR Nasal Influenza B PCR Nasal Influenza A PCR Nasal Parainfluen 1 PCR Nasal Parainfluen 2 PCR Nasal Parainfluen 3 PCR Nasal Parainfluen 4 PCR Nasal RSV (PCR) Nasal B.pertussis DNA PCR Nasal C.pneumoniae (PCR) August Human Metapneumo PCR Nasal M.pneumoniae (PCR) Nasal SARS-CoV-2 (PCR) - Rads (name of study) CXR Radiology: Final report received, EMP read indepedently, See rad report (scattered subsegmental atelectasis) PD MEDICAL DECISION MAKING - ED course Complexity details: reviewed results, re-evaluated patient, considered differential, d/w patient ED course: Patient was worked up with labs, EKG, and chest x-ray, as well as urinalysis. He was given a liter 0.9 normal saline initially, followed by a second when he had not yet urinated. Work-up was unremarkable. arrived, and stated that pt never drinks enough water, and gets dehydrated frequently. Pt was found to be much improved on re-evaluation. He was able to ambulate around the ED with his walker. I had SW give the resources in case she needs more help at home, though at this point, she states she doesn't. Pt is stable for d/c home. Departure - Departure Disposition: 01 Home, Self Care Clinical Impression: Dehydration, Generalized weakness Condition: Stable Instructions: ED Dehydration, ED Weakness UKO Comments: Please be sure to drink plenty of water to prevent dehydration and weakness. There were no concerning abnormalities on your labs today. You were slightly anemic and your kidney labs were slightly elevated, representing your dehydration. Please follow-up with your doctor for further concerns. Discharge Date/Time: 10/04/20 13:25
[2020-10-04 08:21] LABS: BASOPHILS # (AUTO) 0.1 10^3/uL (0.0-0.1); BASOPHILS % (AUTO) 0.6 %; EOSINOPHILS # (AUTO) 0.2 10^3/uL (0.0-0.7); EOSINOPHILS % (AUTO) 2.8 %; HCT - HEMATOCRIT 37.6 % (42.0-52.0); HGB - HEMOGLOBIN 12.2 g/dL (14.0-18.0); LYMPHOCYTES # (AUTO) 0.7 10^3/uL (1.5-3.5); LYMPHOCYTES % (AUTO) 8.3 %; MEAN CORPUSCULAR HEMOGLOBIN 33.3 pg (27.0-31.0); MEAN CORPUSCULAR HGB CONC 32.4 g/dL (32.0-36.0); MEAN CORPUSCULAR VOLUME 102.7 fL (80.0-94.0); MEAN PLATELET VOLUME 9.9 fL (7.4-11.4); MONOCYTES # (AUTO) 0.5 10^3/uL (0.0-1.0); MONOCYTES % (AUTO) 5.9 %; NEUTROPHILS # (AUTO) 6.6 10^3/uL (1.5-6.6); NEUTROPHILS % (AUTO) 82.1 %; PLT - PLATELET COUNT 246 10^3/uL (130-450); RED BLOOD COUNT 3.66 10^6/uL (4.70-6.10); RED CELL DISTRIBUTION WIDTH 12.2 % (12.0-15.0)
--- NOTE | 2020-10-04 08:21 | XRAY Report ---
PROCEDURE: Chest 1 View X-Ray INDICATIONS: chest pain TECHNIQUE: One view of the chest was acquired. COMPARISON: None. FINDINGS: Surgical changes and devices: None. Lungs and pleura: No pleural effusions or pneumothorax. Scattered subsegmental scarring/atelectasi s. No acute consolidation. Mediastinum: Mediastinal contours appear normal. Heart size is normal. Bones and chest wall: Severe bilateral shoulder joint degeneration. Calcific tendinitis seen on the right. Possible calcific tendinitis versus loose body on the left IMPRESSION: Scattered subsegmental scarring/atelectasis. No acute consolidation. Reviewed by: Ja Jennings MD on 10/04/2020 8:20 AM PDT Approved by: Ja Jennings MD on 10/04/2020 8:20 AM PDT Station ID: [id number]
[2020-10-04 08:35] LABS: ALBUMIN 3.7 g/dL (3.2-5.5); ALBUMIN/GLOBULIN RATIO 1.5 (1.0-2.2); BILIRUBIN,TOTAL 0.6 mg/dL (0.2-1.0); CALCIUM 8.4 mg/dL (8.5-10.3); CREATININE 1.7 mg/dL (0.6-1.2); POTASSIUM 4.9 mmol/L (3.5-5.0); TOTAL PROTEIN 6.2 g/dL (6.7-8.2)
[2020-10-04 09:14] LABS: B. PARAPERTUSSIS- RESP PCR PAN NOT DETECTED; B. PERTUSSIS- RESP PCR PANEL NOT DETECTED; C. PNEUMONIAE- RESP PCR PANEL NOT DETECTED; CORONAVIRUS 229E-RESP PCR NOT DETECTED; CORONAVIRUS HKU1-RESP PCR NOT DETECTED; CORONAVIRUS NL63-RESP PCR NOT DETECTED; CORONAVIRUS OC43-RESP PCR NOT DETECTED; HUMAN METAPNEUMOVIRUS NOT DETECTED; INFLUENZA A- RESP PCR PANEL NOT DETECTED; INFLUENZA B - RESP PCR PANEL NOT DETECTED; M. PNEUMONIAE- RESP PCR PANEL NOT DETECTED; PARAINFLUENZA VIRUS 1 NOT DETECTED; PARAINFLUENZA VIRUS 2 NOT DETECTED; PARAINFLUENZA VIRUS 3 NOT DETECTED; PARAINFLUENZA VIRUS 4 NOT DETECTED; RHINOVIRUS/ENTEROVIRUS NOT DETECTED; RSV- RESP PCR PANEL NOT DETECTED; SARS-CoV-2 -RESP PCR PANEL NOT DETECTED
[2020-10-04 09:29] LABS: BILIRUBIN,URINE NEGATIVE (NEGATIVE); GLUCOSE, URINE (UA) NEGATIVE (NEGATIVE); KETONES,URINE (UA) NEGATIVE (NEGATIVE); LEUKOCYTE ESTERASE, URINE NEGATIVE (NEGATIVE); NITRITE,URINE NEGATIVE (NEGATIVE); OCCULT BLOOD,URINE NEGATIVE (NEGATIVE); PH,URINE 6.5 PH (5.0-7.5); PROTEIN,URINE NEGATIVE (NEGATIVE); UROBILINOGEN,URINE 0.2 (NORMAL) E.U./dL (NORMAL)
[2020-10-04 09:32] LABS: CLARITY,URINE CLEAR (CLEAR)
[2020-10-04] MEDS ORDERED: SODIUM CHLORIDE 0.9% 1,000 ML IV STA (10:19)
[2020-10-04 10:20] VITALS: BP 156/64
== END 2020-10-04 13:25 | disposition home or self-care (01) ==
LOC: EDUNIT# → ED 07:48
DX: E86.0 Dehydration (principal); I10 Essential (primary) hypertension; E11.9 Type 2 diabetes mellitus without complications; Z79.84 Long term (current) use of oral hypoglycemic drugs; Z20.822 Contact with and (suspected) exposure to COVID-19
CPT/HCPCS: 0202U; 36415; 51701; 80053; 81001; 81003; 83690; 85025; 87086; 93005; 99284

== ENCOUNTER 2021-01-17 08:00 | Outpatient (CLI) | payer MEDICARE ==
--- NOTE | 2021-01-17 14:10 | XRAY Report ---
PROCEDURE: Shoulder 2 View LT INDICATIONS: PAIN IN LEFT SHOULDER TECHNIQUE: 2 views of the shoulder were acquired. COMPARISON: None. FINDINGS: BONES: No acute, displaced fracture or dislocation. Mild to moderate AC joint arthrosis with osteophy tosis and joint space narrowing. Advanced arthrosis of the glenohumeral articulation with near complete joint space loss, sclerosis ab out the opposing articular surfaces, and osteophytosis. SOFT TISSUES: No focal abnormality or appreciable pneumothorax. IMPRESSION: 1.Advanced glenohumeral arthrosis. Reviewed by: Philippe Choudhary MD on 01/17/2021 2:09 PM [facility] Approved by: Philippe Choudhary MD on 01/17/2021 2:09 PM [facility] Station ID: [id number]
== END 2021-01-17 23:59 | disposition home or self-care (01) ==
LOC: DI.S 08:00
PROVIDERS: ATTEND Physician Assistant
DX: M19.012 Primary osteoarthritis, left shoulder (principal)

== ENCOUNTER 2021-11-30 13:37 | Emergency (ER) | payer MEDICARE ==
[2021-11-30 13:56] LABS: BASOPHILS # (AUTO) 0.1 10^3/uL (0.0-0.1); BASOPHILS % (AUTO) 0.4 %; EOSINOPHILS % (AUTO) 0.1 %; HCT - HEMATOCRIT 46.2 % (42.0-52.0); HGB - HEMOGLOBIN 14.8 g/dL (14.0-18.0); LYMPHOCYTES # (AUTO) 0.8 10^3/uL (1.5-3.5); LYMPHOCYTES % (AUTO) 5.3 %; MEAN CORPUSCULAR HEMOGLOBIN 32.2 pg (27.0-31.0); MEAN CORPUSCULAR VOLUME 100.7 fL (80.0-94.0); MEAN PLATELET VOLUME 9.7 fL (7.4-11.4); MONOCYTES # (AUTO) 0.7 10^3/uL (0.0-1.0); NEUTROPHILS # (AUTO) 12.9 10^3/uL (1.5-6.6); NEUTROPHILS % (AUTO) 88.9 %; PLT - PLATELET COUNT 386 10^3/uL (130-450); RED BLOOD COUNT 4.59 10^6/uL (4.70-6.10); RED CELL DISTRIBUTION WIDTH 14.2 % (12.0-15.0); WHITE BLOOD COUNT 14.5 x10^3/uL (4.8-10.8)
[2021-11-30] MEDS ORDERED: SODIUM CHLORIDE 0.9% 1,000 ML IV STA ×2 (14:16→16:02)
[2021-11-30] MEDS ORDERED: ONDANSETRON 4 MG/2 ML VIAL IVP STA (14:17)
[2021-11-30 14:23] LABS: ALBUMIN 4.1 g/dL (3.2-5.5); ALBUMIN/GLOBULIN RATIO 1.4 (1.0-2.2); BILIRUBIN,TOTAL 0.8 mg/dL (0.2-1.0); CALCIUM 9.2 mg/dL (8.5-10.3); CREATININE 1.8 mg/dL (0.6-1.2); POTASSIUM 4.4 mmol/L (3.5-5.0); TOTAL PROTEIN 7.1 g/dL (6.7-8.2)
[2021-11-30] MEDS ORDERED: fentaNYL 100 MCG/2 ML VIAL IVP STA (14:44)
[2021-11-30] MEDS ORDERED: iohexoL-300 100 ML VIAL ONE (15:14)
[2021-11-30] MEDS ORDERED: PIPERACILLIN/TAZOBACTAM 4.5 GM in SODIUM CHLORIDE 0.9% MINIBAG 100 ML IV STA (15:22)
[2021-11-30] MEDS ORDERED: HYDROmorphone 1 MG/ML CARPUJECT IVP STA (15:26)
--- NOTE | 2021-11-30 15:37 | CT Report ---
PROCEDURE: Abdomen/Pelvis W INDICATIONS: Abd pain, hypotension CONTRAST: IV CONTRAST: Optiray 320 ml: 100 PO CONTRAST: *NO PO CONTRAST TECHNIQUE: After the administration of IV contrast, 5 mm thick sections acquired from the diaphragms to the symp hysis. 5 mm thick coronal and sagittal reformats were acquired. For radiation dose reduction, the f ollowing was used: automated exposure control, adjustment of mA and/or kV according to patient size. COMPARISON: CT abdomen pelvis 220 FINDINGS: Image quality: Excellent. ABDOMEN: Lung bases: Lung bases are clear. Heart size is normal. Solid organs: Liver and spleen are normal in size and enhancement. Gallbladder is unremarkable Steve iary system is non dilated. Pancreas enhances normally. No adrenal nodules. Kidneys demonstrate at rophic size and enhancement, without hydronephrosis. Peritoneum and bowel: There are mildly dilated loops of small bowel predominantly within the left hem iabdomen and pelvis. Mild perihepatic and perisplenic fluid is present as well as mild fluid within t he paracolic gutters and dependent pelvis.. Nodes and vessels: No retroperitoneal or mesenteric adenopathy by size criteria. Aorta and inferior vena cava are normal in size. Miscellaneous: No ventral hernias. PELVIS: Genitourinary: Bladder wall thickness is normal. Miscellaneous: No inguinal hernias or adenopathy. Bones: No suspicious bony lesions. No vertebral body compression fractures. IMPRESSION: Poorly visualized what appears to be mildly dilated loops of small bowel in left hemiabdomen pelvis s econdary to overlying fluid. Underlying element of ileus/partial small bowel obstruction as suspected . Mild abdominal and pelvic fluid is present. Reviewed by: Roslyn Robles MD on 11/30/2021 3:36 PM PDT Approved by: Roslyn Robles MD on 11/30/2021 3:36 PM PDT Station ID: [id number]
--- NOTE | 2021-11-30 15:38 | ED Physician Documentation ---
History of Present Illness - Stated complaint Stated Complaint: ABD PX - Chief complaint Chief Complaint: Abd Pain - Additonal information Additional information: 86-year-old male presenting to the emergency department with chief complaint of abdominal pain. Accompanied by was present at bedside. Pain ongoing x1 day. Associated with nausea and vomiting. Denies similar episodes of pain in the past. Review of Systems Ten Systems: 10 systems reviewed and negative Constitutional: denies: Fever Eyes: denies: Loss of vision Ears: denies: Loss of hearing Nose: denies: Rhinorrhea / runny nose Throat: denies: Dental pain / toothache GI: reports: Abdominal Pain, Nausea, Vomiting : denies: Dysuria PD PAST MEDICAL HISTORY - Past Medical History Cardiovascular: Hypertension, High cholesterol Endocrine/Autoimmune: Type 2 diabetes GI: Chronic constipation : None Psych: Depression, Anxiety Derm: Other - Past Surgical History Past Surgical History: Yes Derm: Skin cancer surgery - Present Medications Home Medications: Ambulatory Orders Medication Instructions Recorded Confirmed [place] [Esterbrook Carbonate] 150 mg PO BID capsule 01/09/19 11/30/21 Metoprolol Tartrate [Lopressor] 25 mg PO BID tablet 01/09/19 11/30/21 Mirtazapine [Remeron] 45 mg PO QPM tablet 01/09/19 11/30/21 OLANZapine ODT [Zyprexa Odt] 10 mg TL DAILY tablet 01/09/19 11/30/21 buPROPion [Wellbutrin Sr] 150 mg PO DAILY tablet 01/09/19 11/30/21 busPIRone [Buspar] 10 mg PO BID tablet 01/09/19 11/30/21 Erythromycin Base [Erythromycin 1 appful OP 5XD 7 Days #1 gm 08/02/20 11/30/21 Ophthalmic Ointment] Finasteride [Proscar] 1 tab PO DAILY 10/04/20 11/30/21 Tamsulosin [Flomax] 1 tab PO DAILY 10/04/20 11/30/21 Cetirizine [ZyrTEC] 10 mg PO DAILY PRN 11/30/21 11/30/21 Clobetasol 0.05% Oint [Temovate 1 applic TOP BID 11/30/21 11/30/21 0.05% Oint] Fluticasone [Flonase] 1 sprays KIMBER BID PRN 11/30/21 11/30/21 Lactulose 20 gm PO DAILY 11/30/21 11/30/21 Latanoprost/Pf [Latanoprost 0.005% 1 drops OP DAILY PM 11/30/21 11/30/21 Eye Drop] Pantoprazole [Protonix] 40 mg PO DAILY PM 11/30/21 11/30/21 Timolol [Betimol] 1 drops OP BID 11/30/21 11/30/21 amLODIPine [Norvasc] 5 mg PO DAILY 11/30/21 11/30/21 - Allergies Allergies/Adverse Reactions: Allergies Allergy/AdvReac Type Severity Reaction Status Date / Time lisinopril Allergy Unknown Verified 11/30/21 13:57 - Social History Does the pt smoke?: No Smoking Status: Never smoker Does the pt drink ETOH?: Yes Does the pt have substance abuse?: No - Immunizations Immunizations are current?: Yes - POLST Patient has POLST: No PD ED PE NORMAL - Vitals Vital signs reviewed: Yes (Patient hypotensive) - General General: Other (Laying in gurney with eyes closed, some pallor) - HEENT HEENT: Atraumatic - Neck Neck: Supple, no meningeal sign - Cardiac Cardiac: RRR, No gallop, Strong equal pulses - Respiratory Respiratory: No respiratory distress, Clear bilaterally - Abdomen Abdomen: Other (Diffuse tenderness without guarding or rigidity) - Male Male : Deferred - Rectal Rectal: Deferred - Back Back: No CVA TTP - Derm Derm: Normal color - Extremities Extremities: No deformity - Neuro Neuro: Alert and oriented X 3, perianesthesia manager 2-12 intact, No motor deficit Results - Vitals Vitals: Vital Signs - 24 hr 11/30/21 11/30/21 11/30/21 13:52 14:40 16:01 Temperature 35.8 C L Heart Rate 69 73 78 Respiratory 16 15 18 Rate Blood Pressure 79/43 L 81/40 L 85/64 L O2 Saturation 100 100 98 11/30/21 11/30/21 16:57 17:31 Temperature Heart Rate 73 80 Respiratory 20 19 Rate Blood Pressure 89/67 L 80/58 L O2 Saturation 99 100 Oxygen O2 Source [] Room air O2 Source Room air - EKG (time done) 1431 Rate: Rate (enter#) (74) Rhythm: NSR Garrison: Normal Intervals: Normal MS QRS: Normal Ischemia: Normal ST segments Computer interpretation: Agree with computer - Labs Labs: Laboratory Tests 11/30/21 11/30/21 11/30/21 13:52 13:52 13:52 WBC 14.5 H RBC 4.59 L Hgb 14.8 Hct 46.2 MCV 100.7 H MCH 32.2 H MCHC 32.0 RDW 14.2 Plt Count 386 MPV 9.7 Neut # (Auto) 12.9 H Lymph # (Auto) 0.8 L Harrison # (Auto) 0.7 Eos # (Auto) 0.0 Baso # (Auto) 0.1 Absolute Nucleated RBC 0.00 Nucleated RBC % 0.0 Sodium 136 Potassium 4.4 Chloride 105 Carbon Dioxide 17 L Anion Gap 14.0 H BUN 35 H Creatinine 1.8 H Estimated GFR (MDRD) 36 L Glucose 233 H Lactic Acid Calcium 9.2 Total Bilirubin 0.8 AST 22 ALT 38 Alkaline Phosphatase 68 Troponin I High Sens Total Protein 7.1 Albumin 4.1 Globulin 3.0 Albumin/Globulin Ratio 1.4 Lipase 28 SARS-CoV-2 (PCR) Blood Type Blood Type Recheck O POSITIVE Antibody Screen 11/30/21 11/30/21 11/30/21 14:38 14:38 14:40 WBC RBC Hgb Hct MCV MCH MCHC RDW Plt Count MPV Neut # (Auto) Lymph # (Auto) Harrison # (Auto) Eos # (Auto) Baso # (Auto) Absolute Nucleated RBC Nucleated RBC % Sodium Potassium Chloride Carbon Dioxide Anion Gap BUN Creatinine Estimated GFR (MDRD) Glucose Lactic Acid Calcium Total Bilirubin AST ALT Alkaline Phosphatase Troponin I High Sens 5.4 Total Protein Albumin Globulin Albumin/Globulin Ratio Lipase SARS-CoV-2 (PCR) NOT DETECTED Blood Type O POSITIVE Blood Type Recheck Antibody Screen NEGATIVE 11/30/21 15:37 WBC RBC Hgb Hct MCV MCH MCHC RDW Plt Count MPV Neut # (Auto) Lymph # (Auto) Harrison # (Auto) Eos # (Auto) Baso # (Auto) Absolute Nucleated RBC Nucleated RBC % Sodium Potassium Chloride Carbon Dioxide Anion Gap BUN Creatinine Estimated GFR (MDRD) Glucose Lactic Acid 4.2 H* Calcium Total Bilirubin AST ALT Alkaline Phosphatase Troponin I High Sens Total Protein Albumin Globulin Albumin/Globulin Ratio Lipase SARS-CoV-2 (PCR) Blood Type Blood Type Recheck Antibody Screen PD MEDICAL DECISION MAKING - ED course Complexity details: reviewed results, re-evaluated patient, d/w patient, d/w family, d/w marketing sales consultant ED course: Patient is 86-year-old male presenting to the emergency department 1 day history abdominal pain with associated nausea and vomiting. Hypotensive on arrival with systolics in the 70s and diffuse tenderness without peritonitis was appreciated on his abdominal exam. IV access was obtained and his blood pressure responded robustly to a small fluid bolus. He was subsequently given dose of fentanyl and hydromorphone for pain control as well as ondansetron for nausea. Labs obtained demonstrated leukocytosis with white blood cell count 14.5 and a mild elevation in lactic acid at 4.2. CT of the abdomen pelvis demonstrated a possible full small bowel obstruction and surgery was consulted. Dr. Dunn evaluated the patient independently in the emergency department and recommended hospitalization.Subsequently consulted with the hospitalist service who declined the patient based on medical complexity and possibility of needing urgent or emergent surgical intervention. While in the emergency department Patient once again became hypotensive and was given an initial fluid bolus which again seems to have restored his blood pressure. His abdominal exam remained benign and stable.
[2021-11-30] MEDS ORDERED: iohexoL-300 100 ML VIAL IVP ONE (16:37)
--- NOTE | 2021-11-30 17:03 | CONSULTATION NOTE ---
Referring Provider Consult Date: 11/30/21 Chief Complaint - Chief Complaint Chief Complaint: abdominal pain History of Present Illness - History Obtained From Records Reviewed: yes History obtained from: pt, spouse, and ed md Exam Limitations: none - History of Present Illness HPI Comment/Other: he was well yesterday. history chronic constipation without change. he had acute onset abdominal pain 930 am today. seen and evaluated in the ED. He was given ivf for low blood pressure and pain medication. he feels much improved and currently denies any pain. ct scan was performed. looks very concerning to me for a diffuse small bowel enteritis. differential could include diffuse ischemia of the small bowel. this is discussed with the patient, spouse, ED MD. The potential he has a serious life threatening problem that I cannot help with surgery is discussed. he has not had prior abdominal surgery History - Past Medical History Cardiovascular: reports: Hypertension, High cholesterol Endocrine/Autoimmune: reports: Type 2 diabetes GI: reports: Chronic constipation : reports: None Psych: reports: Depression, Anxiety Derm: reports: Other MRSA Hx?: Yes - Past Surgical History Derm: reports: Skin cancer surgery - Substance History Use: Uses substance without health or social issues: Alcohol - POLST Patient has POLST: No Meds/Allgy - Home Medications Home Medications: Ambulatory Orders Medication Instructions Recorded Confirmed [place] [W[place]ore Carbonate] 150 mg PO BID capsule 01/09/19 11/30/21 Metoprolol Tartrate [Lopressor] 25 mg PO BID tablet 01/09/19 11/30/21 Mirtazapine [Remeron] 45 mg PO QPM tablet 01/09/19 11/30/21 OLANZapine ODT [Zyprexa Odt] 10 mg TL DAILY tablet 01/09/19 11/30/21 buPROPion [Wellbutrin Sr] 150 mg PO DAILY tablet 01/09/19 11/30/21 busPIRone [Buspar] 10 mg PO BID tablet 01/09/19 11/30/21 Erythromycin Base [Erythromycin 1 appful OP 5XD 7 Days #1 gm 08/02/20 11/30/21 Ophthalmic Ointment] Finasteride [Proscar] 1 tab PO DAILY 10/04/20 11/30/21 Tamsulosin [Flomax] 1 tab PO DAILY 10/04/20 11/30/21 Cetirizine [ZyrTEC] 10 mg PO DAILY PRN 11/30/21 11/30/21 Clobetasol 0.05% Oint [Temovate 1 applic TOP BID 11/30/21 11/30/21 0.05% Oint] Fluticasone [Flonase] 1 sprays KIMBER BID PRN 11/30/21 11/30/21 Lactulose 20 gm PO DAILY 11/30/21 11/30/21 Latanoprost/Pf [Latanoprost 0.005% 1 drops OP DAILY PM 11/30/21 11/30/21 Eye Drop] Pantoprazole [Protonix] 40 mg PO DAILY PM 11/30/21 11/30/21 Timolol [Betimol] 1 drops OP BID 11/30/21 11/30/21 amLODIPine [Norvasc] 5 mg PO DAILY 11/30/21 11/30/21 - Allergies Allergies/Adverse Reactions: Allergies Allergy/AdvReac Type Severity Reaction Status Date / Time lisinopril Allergy Unknown Verified 11/30/21 13:57 Review of Systems - Other Findings Other Findings: 10 pt ros as above otherwise unremarkable. in his usual health until 930 am today. improved now Exam - Vital Signs Vital Signs: Vital Signs x48h Temp Pulse Resp BP Pulse Ox 11/30/21 16:01 78 18 85/64 L 98 11/30/21 14:40 73 15 81/40 L 100 11/30/21 13:52 35.8 C L 69 16 79/43 L 100 - Physical Exam General Appearance: positive: No acute distress, Alert Eyes Bilateral: positive: PERRL, EOMI Neck: positive: No JVD, Trachea midline Respiratory: positive: No respiratory distress Cardiovascular: positive: Regular rate & rhythm Abdomen: positive: Non-tender, No distention Neurologic/Psychiatric: positive: Oriented x3 Conclusion/Plan - Problem List (1) Enteritis Conclusion/Plan: I discussed he seems to have a diffuse small bowel enteritis which could be ischemic. he feels well after ivf and denies abdominal pain at this time. his abdominal exam is benign; however, ct scan shows diffusely abnormal small bowel with ascites. recommend bowel rest, observation, management hypotension. consider transfer to larger hospital; however, management unlikely would be any different. risk of recurrent severe pain and possible due to bowel ischemia discussed. - Lab Results Fish Bones: 11/30/21 13:52 11/30/21 13:52 - Diagnostic Imaging Results Diagnostic Imaging Results: positive: Final report reviewed, Read independently
--- NOTE | 2021-11-30 17:56 | XRAY Report ---
PROCEDURE: Abdomen 1 View X-Ray INDICATIONS: Status post NG tube placement TECHNIQUE: One view of the abdomen acquired. COMPARISON: CT abdomen/pelvis 11/30/2021 FINDINGS: Surgical changes and devices: Enteric tube is seen projecting over the left lower chest, suspected t o be within a left-sided bronchus. Bowel: There is a paucity of bowel gas in the upper abdomen. Stomach is mildly distended.. Soft tissues: No suspicious abdominal calcifications. Visualized solid organ contours appear normal in size. Bones: No suspicious bony lesions. Osteopenia and multilevel degenerative changes are seen in the s pine. IMPRESSION: Enteric tube is seen projecting over the left chest along the course of a left lower lobe bronchus. R ecommend repositioning. Findings were discussed with the referring physician, Dr. Shook, by telephone on 11/30/2021 at 5:50 P M. Reviewed by: Goran Carcamo MD on 11/30/2021 5:54 PM PDT Approved by: Goran Carcamo MD on 11/30/2021 5:54 PM PDT Station ID: [id number]
[2021-11-30] MEDS ORDERED: SODIUM CHLORIDE 0.9% 500 ML IV STA (18:51)
--- NOTE | 2021-11-30 18:56 | XRAY Report ---
PROCEDURE: Chest for Line Placement INDICATIONS: NG TUBE PLACEMENT TECHNIQUE: One view of the chest was acquired. COMPARISON: Abdominal radiographs performed earlier the same day. Chest radiograph 2020 FINDINGS: Surgical changes and devices: Enteric tube is seen with leads appearance projecting over the neck. Lungs and pleura: No pleural effusions or pneumothorax. Lungs are clear. Mediastinum: Mediastinal contours appear normal. Heart size is normal. Bones and chest wall: No suspicious bony lesions. Overlying soft tissues appear unremarkable. IMPRESSION: 1.Enteric tube has been repositioned and is now seen projecting over the neck, likely looping within the pharynx. Recommend repositioning. 2.No acute pulmonary consolidation. No pneumothorax or pleural effusion. Reviewed by: Gorna Cacramo MD on 11/30/2021 6:55 PM PDT Approved by: Goran Carcamo MD on 11/30/2021 6:55 PM PDT Station ID: [id number]
[2021-11-30 19:10] LABS: BILIRUBIN,URINE NEGATIVE (NEGATIVE); GLUCOSE, URINE (UA) NEGATIVE (NEGATIVE); KETONES,URINE (UA) NEGATIVE (NEGATIVE); LEUKOCYTE ESTERASE, URINE NEGATIVE (NEGATIVE); NITRITE,URINE NEGATIVE (NEGATIVE); OCCULT BLOOD,URINE NEGATIVE (NEGATIVE); PROTEIN,URINE NEGATIVE (NEGATIVE); UROBILINOGEN,URINE 0.2 (NORMAL) E.U./dL (NORMAL)
[2021-11-30 19:15] LABS: CLARITY,URINE CLEAR (CLEAR)
[2021-11-30] MEDS ORDERED: MORPHINE 2 MG/ML CARPUJECT IVP STA (19:55)
--- NOTE | 2021-11-30 19:58 | ED Physician Documentation ---
ED Addendum - Addendum Addendum: 11/30/21 19:[address] Shook at shift change. Briefly this is an 86-year-old gentleman who presented with acute abdominal pain and a CT concerning for ischemic bowel who had been seen by the surgeon who agreed without likely diagnosis. At this time he has becoming more hypotensive despite having received already a large volume of IV fluid resuscitation. He had been declined here by the hospitalist as it was felt that he was too ill to stay at this critical access hospital. At that point the thought processes that he wanted aggressive care but is altered now. I spoke with his by phone and discussed that if this is ischemic bowel that mortality is likely and not preventable. We discussed options including going to the operating room and Dr. Dunn was willing to take him to the operating room versus continued attempts at transfer to a higher level of care versus comfort care. At that point she decided that he would not want surgery, a central line or pressors and we were to transition to comfort care. 11/30/21 20:01 The nurse had attempted an NG tube, on review of the x-ray this was coiled in the pharynx and I recommended the nurse that we simply discontinue it and not attempt replacement. 11/30/21 20:34 Repeat labs ordered, reviewed, worsening acidosis with lactate going from 4.2 up to 5.9, bicarb going down from 17 down to 14, leukocytosis worsening going from 14.5 up to 20.2. He is altered, cannot even state that he is in the hospital or how old he is. He is able to state his name but his speech is quite garbled. 11/30/21 21:54 At the time of this evaluation, his supportive is at the bedside. The patient is unresponsive with agonal breathing. I suspect is imminent without hours.
[2021-11-30 20:15] LABS: BASOPHILS % (AUTO) 0.3 %; HCT - HEMATOCRIT 50.7 % (42.0-52.0); HGB - HEMOGLOBIN 15.6 g/dL (14.0-18.0); LYMPHOCYTES % (AUTO) 5.2 %; MEAN CORPUSCULAR HEMOGLOBIN 32.8 pg (27.0-31.0); MEAN CORPUSCULAR HGB CONC 30.8 g/dL (32.0-36.0); MEAN CORPUSCULAR VOLUME 106.5 fL (80.0-94.0); PLT - PLATELET COUNT 406 10^3/uL (130-450); RED BLOOD COUNT 4.76 10^6/uL (4.70-6.10); RED CELL DISTRIBUTION WIDTH 14.5 % (12.0-15.0); WHITE BLOOD COUNT 20.2 x10^3/uL (4.8-10.8)
[2021-11-30 20:17] LABS: ABNORMAL LYMPHS % (MANUAL) 0 %
[2021-11-30 20:25] LABS: CALCIUM 7.8 mg/dL (8.5-10.3); CREATININE 1.9 mg/dL (0.6-1.2); MAGNESIUM 2.5 mg/dL (1.7-2.8); PHOSPHORUS 4.1 mg/dL (2.5-4.6); POTASSIUM 4.8 mmol/L (3.5-5.0)
--- NOTE | 2021-11-30 20:38 | PROVIDER PROGRESS NOTE ---
Subjective - Prog Note Date Prog Note Date: 11/30/21 - Subjective Subjective: pt has declined significantly Objective - Vital Signs/Intake & Output Vital Signs: Vital Signs x48h Temp Pulse Resp BP Pulse Ox 11/30/21 20:17 85 28 H 76/64 L 95 11/30/21 20:00 36.6 C 112 H 38 H 72/51 L 95 11/30/21 19:30 115 H 27 H 77/52 L 96 11/30/21 19:00 77 24 69/54 L 99 11/30/21 18:30 75 17 74/28 L 99 11/30/21 18:00 84 12 83/61 L 99 11/30/21 17:31 80 19 80/58 L 100 11/30/21 16:57 73 20 89/67 L 99 11/30/21 16:01 78 18 85/64 L 98 11/30/21 14:40 73 15 81/40 L 100 11/30/21 13:52 35.8 C L 69 16 79/43 L 100 Intake & Output: Intake & Output 11/27/21 11/28/21 11/29/21 11/30/21 23:59 23:59 23:59 23:59 Intake Total 2600 Balance 2600 - Lab Results Fish Bones: 11/30/21 20:09 11/30/21 20:09 Other Labs: Lab Results x24hrs 11/30/21 11/30/21 11/30/21 Range/Units 20:09 20:09 20:01 WBC 20.2 H (4.8-10.8) x10^3/uL RBC 4.76 (4.70-6.10) 10^6/uL Hgb 15.6 (14.0-18.0) g/dL Hct 50.7 (42.0-52.0) % MCV 106.5 H (80.0-94.0) fL MCH 32.8 H (27.0-31.0) pg MCHC 30.8 L (32.0-36.0) g/dL RDW 14.5 (12.0-15.0) % Plt Count 406 (130-450) 10^3/uL MPV 10.0 (7.4-11.4) fL Neut # (Auto) (1.5-6.6) 10^3/uL Lymph # (Auto) (1.5-3.5) 10^3/uL [place] # (Auto) (0.0-1.0) 10^3/uL Eos # (Auto) (0.0-0.7) 10^3/uL Baso # (Auto) (0.0-0.1) 10^3/uL Absolute Nucleated RBC x10^3/uL Nucleated RBC % /100WBC Sodium 137 (135-145) mmol/L Potassium 4.8 (3.5-5.0) mmol/L Chloride 110 (101-111) mmol/L Carbon Dioxide 14 L (21-32) mmol/L Anion Gap 13.0 (6-13) BUN 34 H (6-20) mg/dL Creatinine 1.9 H (0.6-1.2) mg/dL Estimated GFR (MDRD) 34 L (>89) Glucose 222 H (70-100) mg/dL Lactic Acid 5.9 H* (0.5-2.2) mmol/L Calcium 7.8 L (8.5-10.3) mg/dL Phosphorus 4.1 (2.5-4.6) mg/dL Magnesium 2.5 (1.7-2.8) mg/dL Total Bilirubin (0.2-1.0) mg/dL AST (10-42) IU/L ALT (10-60) IU/L Alkaline Phosphatase (42-121) IU/L Troponin I High Sens (2.3-19.7) ng/L Total Protein (6.7-8.2) g/dL Albumin (3.2-5.5) g/dL Globulin (2.1-4.2) g/dL Albumin/Globulin Ratio (1.0-2.2) Lipase (22-51) U/L Urine Color Urine Clarity (CLEAR) Urine pH (5.0-7.5) PH Ur Specific [place] (1.002-1.030) Urine Protein (NEGATIVE) mg/dL Urine Glucose (UA) (NEGATIVE) mg/dL Urine Ketones (NEGATIVE) mg/dL Urine Occult Blood (NEGATIVE) Urine Nitrite (NEGATIVE) Urine Bilirubin (NEGATIVE) Urine Urobilinogen (NORMAL) E.U./dL Ur Leukocyte Esterase (NEGATIVE) Ur Microscopic Review Urine Culture Comments SARS-CoV-2 (PCR) Blood Type Blood Type Recheck Antibody Screen 11/30/21 11/30/21 11/30/21 Range/Units 19:06 15:37 14:40 WBC (4.8-10.8) x10^3/uL RBC (4.70-6.10) 10^6/uL Hgb (14.0-18.0) g/dL Hct (42.0-52.0) % MCV (80.0-94.0) fL MCH (27.0-31.0) pg MCHC (32.0-36.0) g/dL RDW (12.0-15.0) % Plt Count (130-450) 10^3/uL MPV (7.4-11.4) fL Neut # (Auto) (1.5-6.6) 10^3/uL Lymph # (Auto) (1.5-3.5) 10^3/uL [place] # (Auto) (0.0-1.0) 10^3/uL Eos # (Auto) (0.0-0.7) 10^3/uL Baso # (Auto) (0.0-0.1) 10^3/uL Absolute Nucleated RBC x10^3/uL Nucleated RBC % /100WBC Sodium (135-145) mmol/L Potassium (3.5-5.0) mmol/L Chloride (101-111) mmol/L Carbon Dioxide (21-32) mmol/L Anion Gap (6-13) BUN (6-20) mg/dL Creatinine (0.6-1.2) mg/dL Estimated GFR (MDRD) (>89) Glucose (70-100) mg/dL Lactic Acid 4.2 H* (0.5-2.2) mmol/L Calcium (8.5-10.3) mg/dL Phosphorus (2.5-4.6) mg/dL Magnesium (1.7-2.8) mg/dL Total Bilirubin (0.2-1.0) mg/dL AST (10-42) IU/L ALT (10-60) IU/L Alkaline Phosphatase (42-121) IU/L Troponin I High Sens (2.3-19.7) ng/L Total Protein (6.7-8.2) g/dL Albumin (3.2-5.5) g/dL Globulin (2.1-4.2) g/dL Albumin/Globulin Ratio (1.0-2.2) Lipase (22-51) U/L Urine Color YELLOW Urine Clarity CLEAR (CLEAR) Urine pH 6.0 (5.0-7.5) PH Ur Specific [place] 1.010 (1.002-1.030) Urine Protein NEGATIVE (NEGATIVE) mg/dL Urine Glucose (UA) NEGATIVE (NEGATIVE) mg/dL Urine Ketones NEGATIVE (NEGATIVE) mg/dL Urine Occult Blood NEGATIVE (NEGATIVE) Urine Nitrite NEGATIVE (NEGATIVE) Urine Bilirubin NEGATIVE (NEGATIVE) Urine Urobilinogen 0.2 (NORMAL) (NORMAL) E.U./dL Ur Leukocyte Esterase NEGATIVE (NEGATIVE) Ur Microscopic Review NOT INDICATED Urine Culture Comments NOT INDICATED SARS-CoV-2 (PCR) NOT DETECTED Blood Type Blood Type Recheck Antibody Screen 11/30/21 11/30/21 11/30/21 Range/Units 14:38 14:38 13:52 WBC (4.8-10.8) x10^3/uL RBC (4.70-6.10) 10^6/uL Hgb (14.0-18.0) g/dL Hct (42.0-52.0) % MCV (80.0-94.0) fL MCH (27.0-31.0) pg MCHC (32.0-36.0) g/dL RDW (12.0-15.0) % Plt Count (130-450) 10^3/uL MPV (7.4-11.4) fL Neut # (Auto) (1.5-6.6) 10^3/uL Lymph # (Auto) (1.5-3.5) 10^3/uL [place] # (Auto) (0.0-1.0) 10^3/uL Eos # (Auto) (0.0-0.7) 10^3/uL Baso # (Auto) (0.0-0.1) 10^3/uL Absolute Nucleated RBC x10^3/uL Nucleated RBC % /100WBC Sodium (135-145) mmol/L Potassium (3.5-5.0) mmol/L Chloride (101-111) mmol/L Carbon Dioxide (21-32) mmol/L Anion Gap (6-13) BUN (6-20) mg/dL Creatinine (0.6-1.2) mg/dL Estimated GFR (MDRD) (>89) Glucose (70-100) mg/dL Lactic Acid (0.5-2.2) mmol/L Calcium (8.5-10.3) mg/dL Phosphorus (2.5-4.6) mg/dL Magnesium (1.7-2.8) mg/dL Total Bilirubin (0.2-1.0) mg/dL AST (10-42) IU/L ALT (10-60) IU/L Alkaline Phosphatase (42-121) IU/L Troponin I High Sens 5.4 (2.3-19.7) ng/L Total Protein (6.7-8.2) g/dL Albumin (3.2-5.5) g/dL Globulin (2.1-4.2) g/dL Albumin/Globulin Ratio (1.0-2.2) Lipase (22-51) U/L Urine Color Urine Clarity (CLEAR) Urine pH (5.0-7.5) PH Ur Specific [place] (1.002-1.030) Urine Protein (NEGATIVE) mg/dL Urine Glucose (UA) (NEGATIVE) mg/dL Urine Ketones (NEGATIVE) mg/dL Urine Occult Blood (NEGATIVE) Urine Nitrite (NEGATIVE) Urine Bilirubin (NEGATIVE) Urine Urobilinogen (NORMAL) E.U./dL Ur Leukocyte Esterase (NEGATIVE) Ur Microscopic Review Urine Culture Comments SARS-CoV-2 (PCR) Blood Type O POSITIVE Blood Type Recheck O POSITIVE Antibody Screen NEGATIVE 11/30/21 11/30/21 Range/Units 13:52 13:52 WBC 14.5 H (4.8-10.8) x10^3/uL RBC 4.59 L (4.70-6.10) 10^6/uL Hgb 14.8 (14.0-18.0) g/dL Hct 46.2 (42.0-52.0) % MCV 100.7 H (80.0-94.0) fL MCH 32.2 H (27.0-31.0) pg MCHC 32.0 (32.0-36.0) g/dL RDW 14.2 (12.0-15.0) % Plt Count 386 (130-450) 10^3/uL MPV 9.7 (7.4-11.4) fL Neut # (Auto) 12.9 H (1.5-6.6) 10^3/uL Lymph # (Auto) 0.8 L (1.5-3.5) 10^3/uL [place] # (Auto) 0.7 (0.0-1.0) 10^3/uL Eos # (Auto) 0.0 (0.0-0.7) 10^3/uL Baso # (Auto) 0.1 (0.0-0.1) 10^3/uL Absolute Nucleated RBC 0.00 x10^3/uL Nucleated RBC % 0.0 /100WBC Sodium 136 (135-145) mmol/L Potassium 4.4 (3.5-5.0) mmol/L Chloride 105 (101-111) mmol/L Carbon Dioxide 17 L (21-32) mmol/L Anion Gap 14.0 H (6-13) BUN 35 H (6-20) mg/dL Creatinine 1.8 H (0.6-1.2) mg/dL Estimated GFR (MDRD) 36 L (>89) Glucose 233 H (70-100) mg/dL Lactic Acid (0.5-2.2) mmol/L Calcium 9.2 (8.5-10.3) mg/dL Phosphorus (2.5-4.6) mg/dL Magnesium (1.7-2.8) mg/dL Total Bilirubin 0.8 (0.2-1.0) mg/dL AST 22 (10-42) IU/L ALT 38 (10-60) IU/L Alkaline Phosphatase 68 (42-121) IU/L Troponin I High Sens (2.3-19.7) ng/L Total Protein 7.1 (6.7-8.2) g/dL Albumin 4.1 (3.2-5.5) g/dL Globulin 3.0 (2.1-4.2) g/dL Albumin/Globulin Ratio 1.4 (1.0-2.2) Lipase 28 (22-51) U/L Urine Color Urine Clarity (CLEAR) Urine pH (5.0-7.5) PH Ur Specific [place] (1.002-1.030) Urine Protein (NEGATIVE) mg/dL Urine Glucose (UA) (NEGATIVE) mg/dL Urine Ketones (NEGATIVE) mg/dL Urine Occult Blood (NEGATIVE) Urine Nitrite (NEGATIVE) Urine Bilirubin (NEGATIVE) Urine Urobilinogen (NORMAL) E.U./dL Ur Leukocyte Esterase (NEGATIVE) Ur Microscopic Review Urine Culture Comments SARS-CoV-2 (PCR) Blood Type Blood Type Recheck Antibody Screen Assessment/Plan - Problem List (1) Enteritis Impression: chart reviewed and recent events noted. discussed with ED MD. Pts clinically status is consistent with my concern 90% of his small bowel is ischemic. He has not responded to conservative measures. I do not believe pressors will be beneficial and surgery would only confirm the diagnosis of diffuse small bowel ischemia and impending . Agree with comfort care
--- NOTE | 2021-11-30 20:41 | XRAY Report ---
PROCEDURE: Chest for Line Placement INDICATIONS: ng tube (removed p pix) TECHNIQUE: One view of the chest was acquired. COMPARISON: Prior chest plain film 10/04/2020. FINDINGS: Surgical changes and devices: Esophagogastric tube is placed with its tip in the gastric body. Lungs and pleura: No pleural effusions or pneumothorax. Lungs are mildly abnormal with what appears to be a mild degree of chronic interstitial prominence.. Mediastinum: Mediastinal contours appear normal. Heart size is normal. Bones and chest wall: No suspicious bony lesions. Overlying soft tissues appear unremarkable. IMPRESSION: Esophagogastric tube in normal position, mild chronic interstitial prominence. Reviewed by: Momo Romero MD on 11/30/2021 8:39 PM PDT Approved by: Momo Romero MD on 11/30/2021 8:39 PM PDT Station ID: [id number]
[2021-11-30 20:52] LABS: BAND NEUTROPHILS % (MANUAL) 3 %; LYMPHOCYTES # (MANUAL) 0.8 10^3/uL (1.5-3.5); LYMPHOCYTES % (MANUAL) 4 %; NEUTROPHILS # (MANUAL) 18.4 10^3/uL (1.5-6.6)
[2021-11-30 20:53] LABS: DIFFERENTIAL COMMENT MANUAL DIFFERENTIAL; PLATELET ESTIMATE, MANUAL NORMAL (130-450,000) (NORMAL); PLATELET MORPHOLOGY NORMAL APPEARANCE (NORMAL); RBC MORPHOLOGY (MULTIPLE) 1+ MACROCYTOSIS (NORMAL); WBC MORPHOLOGY (MULTIPLE) NORMAL APPEARANCE (NORMAL)
[2021-11-30 22:26] VITALS: BP 36/23
--- NOTE | 2021-11-30 23:06 | ED Physician Documentation ---
ED Addendum - Addendum Addendum: 11/30/21 22:36 Care of patient turned over to me at end of off-going ED physician's shift. At turn over of care (approximately 10 PM 11/30/21), was imminent and expected within hours. At 10:35 PM I was informed by ED RN that patient appeared to have . I examined patient. He is pale, unresponsive. There is no breathing, there are no heart sounds, there is no response to painful stimulus (sternal rub), no pulse (right radial, right carotid were checked). The monitor showed agonal beats that rapidly deteriorated to asystole noted in two leads. Pupils fixed and dilated. I pronounced patient at 10:36 PM (22:36).
== END 2021-12-01 11:05 | disposition expired ==
LOC: ED 13:37
DX: K55.029 Acute infarction of small intestine, extent unspecified (principal); K52.9 Noninfective gastroenteritis and colitis, unspecified; I10 Essential (primary) hypertension; E11.9 Type 2 diabetes mellitus without complications; I95.9 Hypotension, unspecified; K59.00 Constipation, unspecified
CPT/HCPCS: 36415; 74018; 74177; 80048; 80053; 81003; 83605; 83690; 83735; 84100; 84484; 85025; 86850; 86900; 86901; 87635; 93005; 96365; 96375; 99285; J1170; Q9967; 81001; 87086